=== PATIENT | male | born 1980 | race Two or more races ===

== ENCOUNTER 2025-02-24 10:01 | Emergency (ER) | payer MEDICAID, SELFPAY ==
[2025-02-24 10:23] VITALS: BP 124/76; PULSE 75; RESP 17; TEMP 37.1; O2SAT 96; BMI 29.0
--- NOTE | 2025-02-24 11:09 | EKG_ITS ---
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
[2025-02-24 11:42] LABS: Mean Corpuscular Hemoglobin 31.4 pg (25.0-35.0); Mean Corpuscular Volume 90 fL (80-100); Red Blood Count 4.77 Miln/mm3 (4.50-5.90); White Blood Count 6.9 Thou/mm3 (3.8-10.6)
[2025-02-24 11:43] LABS: Basophils # (Auto) 0.1 Thou/mm3 (0.0-0.2); Basophils % (Auto) 1 % (0-2.5); Eosinophils # (Auto) 0.1 Thou/mm3 (0.0-0.5); Eosinophils % (Auto) 1 % (0-10); Immature Granulocytes % (Auto) 0 % (0-0); Immature Granulocytes Auto 0.01 Thou/mm3 (0.00-0.00); Lymphocytes # (Auto) 1.8 Thou/mm3 (1.0-4.8); Lymphocytes % (Auto) 26 % (10-50); Mean Corpuscular HGB Conc 34.9 g/dl (31.0-37.0); Monocytes # (Auto) 0.7 Thou/mm3 (0.0-0.8); Monocytes % (Auto) 10 % (0-12); Neutrophils # (Auto) 4.3 Thou/mm3 (1.8-7.7); Neutrophils % (Auto) 62 % (37-80); Nucleated Red Blood Cell % 0 /100 WBC (0); Platelet Count 254 Thou/mm3 (140-440)
--- NOTE | 2025-02-24 11:49 | XR_ITS ---
Examination: AP chest single view TECHNIQUE: AP portable semiupright chest single view Date and time: February 24, 2025 1149 hours INDICATIONS: Chest pain today FINDINGS: Reduced inspiratory effort Normal heart size No lobar pneumonia or pulmonary edema IMPRESSION: Poor inspiratory effort chest x-ray
[2025-02-24 11:56] LABS: B-Type Natriuretic Peptide < 20 pg/mL (0-100)
[2025-02-24 11:59] LABS: Alanine Aminotransferase 28 U/L (10-49); Albumin, Serum 4.4 gm/dL (3.5-5.0); Albumin/Globulin Ratio 1.8 (1.2-2.2); Alkaline Phosphatase 53 U/L (46-116); Anion Gap 8 (7-16); Aspartate Amino Transferase 24 U/L (0-34); BUN/Creatinine Ratio 16 Ratio (12-20); Bilirubin,Total 0.4 mg/dL (0.3-1.2); Blood Urea Nitrogen 13 mg/dL (9-23); Calcium 9.1 mg/dL (8.3-10.6); Calcium (Corrected) 9.1 mg/dL (8.5-10.1); Carbon Dioxide 22.8 mMol/L (20.0-31.0); Chloride 105 mMol/L (98-107); Creatinine (Component) 0.8 mg/dL (0.6-1.3); Estimated Creatinine Clearance 119.5 mL/min (>60); Globulin 2.5 gm/dL (2.3-3.5); Glucose 94 mg/dL (74-106); Lipase 33 U/L (12-53); Osmolality,Calculated 272 (275-295); Sodium 136 mMol/L (136-145); Total Protein 6.9 gm/dL (5.7-8.2); Troponin I < 0.002 ng/mL (0.0-0.045); eGFR > 60 See Note
--- NOTE | 2025-02-24 12:13 | EDNOTE_ITS ---
Upper Respiratory Inf. RME/HPI General Chief Complaint: Shortness of Breath/Dyspnea Stated Complaint: SOB, COUGH, BACK PAIN W/ BREATHING X1MO Time Seen by Provider: 02/24/25 10:09 Arrival date/time: 02/24/25 10:01 Mode of arrival: ambulatory Limitations: no limitations RME / HPI RME / HPI Narrative: 43-year-old male who is here today with shortness of breath and chest pain for over 1 month. 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 He has no active cough at this time. Denies any weight loss or chills. Has no abdominal pain, nausea, or vomiting. He has no other acute complaints. Related Data Home Medications ?Medication ?Instructions ?Recorded ?Confirmed aripiprazole 20 mg tablet 20 mg PO QDAY 02/17/2102/17 buspirone 5 mg tablet 5 mg PO BID 02/17/21 1 naproxen sodium 550 mg tablet 550 mg PO BID 02/17/21 0 02/17/21 prazosin 1 mg capsule 1 mg PO HS 02/17/21 02/17/21 prazosin 5 mg capsule 5 mg PO HS 02/17/21 02/17/21 trazodone 50 mg tablet 50 mg PO HS 02/17/21 1 Previous Rx's ?Medication ?Instructions ?Recorded pantoprazole 40 mg tablet,delayed 40 mg PO QDAY #30 ta bs 02/20/21 release (Protonix) Allergies Allergy/AdvReac Type Severity Reaction Status Date / Time No Known Allergies Allergy Verified 02/24/25 10:05 Review of Systems Review of Systems Systems Reviewed: All systems reviewed, normal except as documented ED Exam General Limitations: Present no limitations General appearance: Present alert and in no apparent distress Head Head exam: Present atraumatic Eye Eye exam: Present normal appearance, PERRL and EOMI ENT ENT exam: Present normal exam, normal oropharynx and mucous membranes moist Neck Neck exam: Present normal inspection, full ROM and trachea midline Chest Chest inspection: Present normal inspection and symmetric chest wall rise Respiratory Respiratory exam: Present normal lung sounds bilaterally Cardiovascular Cardiovascular exam: Present regular rate, normal rhythm and normal heart sounds Abdominal Exam Abdominal exam: Present soft and normal bowel sounds Extremities Exam Extremities exam: Present normal inspection and full ROM Back Exam Back exam: Present normal inspection and full ROM Neurological Exam Neurological exam: Present alert, oriented X3 and CN II-XII intact Psychiatric Psychiatric exam: Present normal affect and normal mood Skin Skin exam: Present warm, dry, intact and normal color Course Quality Measures none Orders Category Date Time Status EKG (ED ONLY) *Do not use* NOW Care 02/24/25 11:09 Completed EKG (ED Only) Stat Exams 02/24/25 11:09 Draft XR chest 1V Stat Exams 02/24/25 11:49 Completed BNP [B-Type Natriuretic Peptide] Stat Lab 02/24/25 11:35 Completed CBC Stat Lab 02/24/25 11:35 Completed CMP [Comprehensive Metabolic Panel] Stat Lab 02/24/25 11:35 Completed Lipase Stat Lab 02/24/25 11:35 Completed Troponin I Stat Lab 02/24/25 11:35 Completed Vital Signs Vital signs: Vital Signs Temperature 98.8 F 02/24/25 10:23 Pulse Rate 75 02/24/25 10:23 Respiratory Rate 17 02/24/25 10:23 Blood Pressure 124/76 02/24/25 10:23 Pulse Oximetry (%) 96 02/24/25 10:23 Oxygen Delivery Method Room Air 02/24/25 10:23 Upper Respiratory Infection Patient data External records reviewed:: None Clinical information provided by:: patient and family Social determinants that could affect healthcare access:: none Patient has the following chronic illnesses:: n/a How is presenting disease/condition affected by chronic disease/condition?: no chronic disease Evaluation data The following diagnostics were reviewed and interpreted by me:: lab results, radiology exam(s) and EKG tracing(s) Lab and/or radiology exams considered but not ordered:: N/A Interpretation Summary: No leukocytosis or electrolyte derangement. Chest x-ray reveals poor inspiration, with is no evidence of acute or active disease. Medications / Prescriptions Medications or Prescriptions considered but not ordered:: N/A Medication administrations:: N/A Consultations Consultation(s) initiated? (list below): No Diagnosis Upper Respiratory Differential Diagnosis: upper respiratory infection, viral infection, bronchitis and other (Tuberculosis) Most likely diagnosis given after review of the tests above:: Chest pain Admission Indicated Admission indicated?: not indicated Admission Request Was there a request for admission?: No Disposition Plan Disposition Plan: Discharge Discharge Attestation Discharge Attestation: The patient and all family members were given an opportunity to ask questions and understood the discharge instructions. Discharge instructions specifically effects, indications for sooner follow up or return to the emergency department, and the expected course of current diagnosis. Patient condition: Stable Discharge Plan Plan Patient Disposition: HOME (Self Care) Patient condition on transfer: Stable Prescriptions/Referrals Prescriptions/Med Rec: No Action buspirone 5 mg tablet 5 mg PO BID prazosin 5 mg capsule 5 mg PO HS Patient Comments: TOMWoodrow 1 C PSULA POR V A ORAL AL ACOSTARSE CON 1 MG naproxen sodium 550 mg tablet 550 mg PO BID aripiprazole 20 mg tablet 20 mg PO QDAY trazodone 50 mg tablet 50 mg PO HS Patient Comments: TOME HAYDEN TABLETA TODOS LOS D AL ACOSTARSE prazosin 1 mg capsule 1 mg PO HS Patient Comments: TOME DOS CAPSULAS POR V A ORAL CADA NOCHE CON 5 MG pantoprazole [Protonix] 40 mg tablet,delayed release (DR/EC) 40 mg PO QDAY Qty: 30 0RF Referrals: No Primary/Family,Physician [Primary Care Provider] - In 1 week Problem List Clinical Impression: Chest pain Patient/Caregiver Discharge Instructions Education Materials: ED Chest Pain, Uncertain Cause Additional Instructions: Your workup today was unremarkable. Please contact public health to discuss fur ther workup options and therapy. You may contact them using the information below. Return exam for any worsening for emergent changes. :[facility], [address], [place] [address] [phone] Print Language: Romansh Stand Alone Forms: Alyssa Award Info., Patient Portal Info Letter
[2025-02-24 12:18] VITALS: BP 129/72; PULSE 544; RESP 16; TEMP 37; O2SAT 97
== END 2025-02-24 13:28 | disposition home or self-care (01) ==
PROVIDERS: Physician Assistant Medical; Emergency Provider Family Medicine
DX: R07.9 Chest pain, unspecified (principal); R06.02 Shortness of breath
CPT/HCPCS: 36415; 71045; 80053; 83690; 83880; 84484; 85025; 93005; 99283

== ENCOUNTER 2025-06-28 16:03 | Inpatient (IN) | payer MEDICAID, SELFPAY ==
[2025-06-28] VITALS (17 sets, daily range): BP systolic 150–182; BP diastolic 73–118; PULSE 64–131; RESP 19–38; TEMP 36.6–37.4; O2SAT 87–97; BMI 27.4
--- NOTE | 2025-06-28 16:15 | XR_ITS ---
Examination: CT brain head without contrast. 2-D sagittal coronal reconstructions Date and time of exam: June 18 teen [phone] 1 hours INDICATIONS: Injury to the head today with head pain altered mental status CTDI: vol (mGy): 52.4 DLP: (mGycm): 1097 Technique: Multiple CT axial sections of the brain have been obtained, 5 mm slice thickness. Contrast has not been administered. 2-D sagittal, coronal reconstructions have been obtained Low dose protocols were performed. One or more of the following dose reduction techniques were used; automated exposure control, adjustment of the mA and/or KV according to patient size, use of iterative reconstruction technique. Findings: No significant ventricular enlargement. Intra-axial or extra-axial hemorrhage density is not seen. No mass effect or midline shift Basal cisterns are not remarkable. Fourth ventricle is midline. Cranial vault intact. Impression: Negative for acute hemorrhage, mass effect or midline shift
[2025-06-28] MEDS: ONDANSETRON INJ 2 MG/ML INJ 2 ML 4 MG IVP (16:17)
[2025-06-28] MEDS: RINGERS LACTATED 1000 ML 1,000 ML 999 ML IV ×2 (16:20→18:13)
--- NOTE | 2025-06-28 16:21 | EKG_ITS ---
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
--- NOTE | 2025-06-28 16:22 | PD.EDALCOH ---
ED Alcohol RME/HPI General Chief Complaint: Psychiatric Symptoms Stated Complaint: ALCOHOL WITHDRAWAL Time Seen by Provider: 06/28/25 16:15 Arrival date/time: 06/28/25 16:03 Limitations: altered mental status RME / HPI RME / HPI narrative: Patient is a 44-year-old male with medical history notable for alcohol use disorder, upper GI bleed, that is in the emergency department concerns for confusion, vomiting and generally feeling unwell for the last couple days. Per EMS spoke with family, patient is usually GCS 15, drinks heavily, they ran out of alcohol at home and so the patient has not been drinking over the last couple days. Per the patient he has not consumed alcohol unclear if today or yesterday. 911 was called because the patient started hallucinating, scratching at his neck and his chest, vomiting dark emesis, and having difficulty moving. Patient was unable to walk for EMS, not following commands. Per EMS, family states that patient has been hallucinating, and when he starts to see things he scratches himself violently including at his neck. Denies any falls, or trauma other than his old self excoriations for EMS conversation with family When I speak to the patient, patient knows his name, does not know where he is does not know what is going on. Able to follow some commands. Unclear if also has drug use. Related Data Home Medications ?Medication ?Instructions ?Recorded ?Confirmed aripiprazole 20 mg tablet 20 mg PO QDAY 02/17/21 02/17/21 buspirone 5 mg tablet 5 mg PO BID 02/17/21 02/17/21 naproxen sodium 550 mg tablet 550 mg PO BID 02/17/21 02/17/21 prazosin 1 mg capsule 1 mg PO HS 02/17/21 02/17/21 prazosin 5 mg capsule 5 mg PO HS 02/17/21 02/17/21 trazodone 50 mg tablet 50 mg PO HS 02/17/21 02/17/21 Previous Rx's ?Medication ?Instructions ?Recorded pantoprazole 40 mg tablet,delayed 40 mg PO QDAY #30 tabs 02/20/21 release (Protonix) Allergies Allergy/AdvReac Type Severity Reaction Status Date / Time No Known Allergies Allergy Verified 06/28/25 16:27 ED Exam General Limitations: Present altered mental status General appearance: Present alert, anxious, in distress and other (Diaphoretic) Head Head exam: Present atraumatic and other (Diaphoretic) Eye Eye exam: Present normal appearance, PERRL and EOMI ENT ENT exam: Present mucous membranes moist Neck Neck exam: Present other (Multiple scratches bilateral neck, no ecchymoses, no expanding hematoma) Chest Chest inspection: Present rash (Patient with significant petechiae on chest) Respiratory Respiratory exam: Present normal lung sounds bilaterally; Absent respiratory distress or wheezes Cardiovascular Cardiovascular exam: Present tachycardia Abdominal Exam Abdominal exam: Present soft; Absent distention, tenderness or guarding exam: Present normal inspection Extremities Exam Extremities exam: Present normal inspection and other (Weak in all 4 extremities) Back Exam Back exam: Present normal inspection Neurological Exam Neurological exam: Present alert and other (Patient intermittently following commands, sensation intact in all 4 extremities, weak in all 4 extremities) Psychiatric Psychiatric exam: Present agitated and anxious Skin Skin exam: Present other (Petechiae scattered chest neck, excoriations on neck, scratches on neck, diaphoretic) Course Quality Measures none Orders Category Date Time Status 1799 Psychiatric Hold NOW Care 06/28/25 16:[address] Screening NOW Care 06/28/25 16:16 Active EKG (ED ONLY) *Do not use* NOW Care 06/28/25 16:21 Completed Miscellaneous Nursing Order NOW Care 06/28/25 16:43 Active One-to-one observation NOW Care 06/28/25 16:30 Active Consult to Gastroenterology Stat Cons 06/28/25 18:[address] cervical spine wo con Stat Exams 06/28/25 17:[address] head/brain wo con Stat Exams 06/28/25 16:15 Completed EKG (ED Only) Stat Exams 06/28/25 16:21 Draft Acetaminophen Stat Lab 06/28/25 16:30 Completed Alcohol, Blood Medical Stat Lab 06/28/25 16:30 Completed Ammonia Stat Lab 06/28/25 16:30 Completed CBC Stat Lab 06/28/25 16:30 Completed CMP [Comprehensive Metabolic Panel] Stat Lab 06/28/25 16:30 Completed Drug Screen,Urine Stat Lab 06/28/25 17:15 Completed Magnesium Stat Lab 06/28/25 16:30 Completed PT [Prothrombin Time with INR] Stat Lab 06/28/25 16:30 Completed Salicylate Stat Lab 06/28/25 16:30 Completed T4 (Thyroxine) Stat Lab 06/28/25 16:30 Completed TSH [Thyroid Stimulating Hormone] Stat Lab 06/28/25 16:30 Completed Type and Screen Stat Lab 06/28/25 17:36 Completed UA, C/S IF [Urinalysis, C/S if Indicated] Stat Lab 06/28/25 17:15 Completed VBG [Venous Blood Gas] Stat Lab 06/28/25 16:30 Completed Folic Acid Inj Med 06/28/25 16:15 Discontinued 1 mg IVP X1 ONE LORazepam [Ativan Inj] Med 06/28/25 16:24 Discontinued 1 mg IVP X1 ONE Octreotide Acet Inj [SandoSTATIN Inj] Med 06/28/25 16:40 Discontinued 50 mcg IV X1 ONE Ondansetron Inj [Zofran Inj] Med 06/28/25 16:09 Discontinued 4 mg .ROUTE .STK-MED ONE Ondansetron Inj [Zofran Inj] Med 06/28/25 16:10 Discontinued 4 mg IVP X1 ONE Ondansetron Inj [Zofran Inj] Med 06/28/25 16:15 Discontinued 4 mg IVP X1 ONE Pantoprazole/Ns 80Mg IV Premix [Protonix/NS 80mg IV Med 06/28/25 16:19 Discontinued Premix] 80 mg in 100 ml IV X1 Pantoprazole/Ns 80Mg IV Premix [Protonix/NS 80mg IV Med 06/28/25 16:34 Active Premix] 80 mg in 100 ml IV X1 Ringers Lactated 1000 ml [Lactated Ringers] 1,000 ml Med 06/28/25 16:17 Discontinued IV 999 mls/hr Ringers Lactated 1000 ml [Lactated Ringers] 1,000 ml Med 06/28/25 17:37 Discontinued IV 999 mls/hr Ringers Lactated 500 ml [Lactated Ringers] 500 ml Med 06/28/25 16:11 Discontinued IV 999 mls/hr Sodium Chloride 0.9% [Ns] 100 ml Med 06/28/25 17:00 Active Octreotide Acet Inj [SandoSTATIN Inj] 1,000 mcg IV 50 mcg/hr Sodium Chloride 0.9% [Ns] 100 ml Med 06/29/25 13:00 Pending Octreotide Acet Inj [SandoSTATIN Inj] 1,000 mcg IV 50 mcg/hr Thiamine Inj [Vitamin B-1 Inj] Med 06/28/25 16:30 Discontinued 100 mg IV X1 ONE Thiamine Inj [Vitamin B-1 Inj] 100 mg Med 06/28/25 16:15 Discontinued Sodium Chloride 0.9% [Ns] 100 ml IV X1 Vital Signs Vital signs: Vital Signs Temperature 98.9 F 06/28/25 16:14 Pulse Rate 131 H 06/28/25 16:14 Respiratory Rate 33 H 06/28/25 16:14 Blood Pressure 167/104 H 06/28/25 16:14 Pulse Oximetry (%) 95 06/28/25 16:14 Oxygen Delivery Method Nasal Cannula 06/28/25 16:14 Oxygen Flow Rate 2 06/28/25 16:14 Critical Care Time Critical Care Time Critical Care Time: Yes Total Critical Care Time (min.): 60 Attestation: Due to a high probability of clinically significant, life threatening deterioration, the patient required my highest level of preparedness to intervene emergently and I personally spent this critical care time directly and personally managing the patient. This critical care time included obtaining a history; examining the patient; pulse oximetry; ordering and review of studies; arranging urgent treatment with development of a management plan; evaluation of patient's response to treatment; frequent reassessment; and, discussions with other providers. This critical care time was performed to assess and manage the high probability of imminent, life-threatening deterioration that could result in multi-organ failure. It was exclusive of separately billable procedures and treating other patients and teaching time. Please see MDM section and the rest of the note for further information on patient assessment and treatment. Discharge Plan Plan Patient Disposition: Admit Acute Care w/in Hospital Problem List Clinical Impression: Suicide attempt, Alcohol withdrawal, Coffee ground emesis, Alcohol use disorder, Petechiae Alcohol MDM Narrative MDM Narrative: Patient is a 44-year-old male with medical history notable for alcohol use disorder, alcohol withdrawal, GI bleed that send emergency department concerns for vomiting, confusion, and feeling unwell. Vital signs and exam as listed. Concern for delirium tremens, alcohol withdrawal, upper GI bleed, bleeding varices, acute intracranial hemorrhage among others. Patient was placed in a resuscitation room, IV access obtained, placed on the hospital monitor. Patient diaphoretic, tachycardic, tachypneic, oxygen saturation is 93% on room air. Patient also has scratches on his neck as well as petechiae throughout his chest, patient vomiting, dark emesis. Abdomen soft nondistended nontender. Ordered CT brain, CT cervical spine given patient with scratches on his neck unclear if trauma was involved however patient does not have any neck pain or cervical spine tenderness. Also ordered Protonix bolus and drip, octreotide bolus and drip, a liter of fluids and antiemetics. 4:31p patient told nursing staff that he ingested rat poison yesterday in an attemp to kill himself. I placed patient at 79, called poison control. Discussed the case with poison control, states that depending on the type of rat poison, concern would be seizures would like to usually occur soon after ingestion, as well as coagulopathy. Recommends that we trend the CBC every 12 hours if normal. If abnormal recommends that we trend it every 4-6 hours. Usually with the super warfarin type of rat poison symptoms do not present until approximately 5 days after ingestion. Patient would need trending for approximately 5 days. If abnormal is requesting that we call poison control back. EKG performed today at 1623 notable for sinus rhythm heart rate 98, normal intervals, nonspecific T wave changes, not a cardiac alert, patient has mild elevations in lead V2 and depressions in V5 Labs with evidence of leukocytosis 18.4, left shift of 89%. Hemoglobin is 15.9. pH normal, sodium 133, chloride 93, anion gap of 20, creatinine 1.9 previously normal. Fluids were provided. Magnesium 3.5, will provide patient with additional fluids. Patient with transaminitis, AST 123 ALT 73, normal bilirubin, alk phos normal, ammonia 57. Thyroid studies unremarkable. Tylenol salicylate and ethanol level not elevated. PT and INR normal. 5:40p on reevaluation patient now more calm, hemodynamically stable, no longer vomiting and no longer diaphoretic. Urinalysis without evidence of infection. Drug screen negative. CT brain and cervical spine without any acute abnormalities. Patient without any focal neurodeficits, moving all extremities. Patient feels better 6:30p Following dosage of benzodiazepines, patient calm, resting comfortably. Will consult information officer as well as hospitalist service. Patient will remain on 1798 until medically cleared by hospitalist service for SW evaluation. Called Dr. Dale, left Discussed case with hospitalist, kindly accepts patient for admission Patient data External records reviewed:: [facility] previous records and EMS form Clinical information provided by:: patient and EMS Social determinants that could affect healthcare access:: mental health Patient has the following chronic illnesses:: see mdm How is presenting disease/condition affected by chronic disease/condition?: exacerbated by Evaluation data The following diagnostics were reviewed and interpreted by me:: lab results, radiology exam(s) and EKG tracing(s) Lab and/or radiology exams considered but not ordered:: none Interpretation Summary: see mdm Medications / Prescriptions Medications or Prescriptions considered but not ordered:: none Medication administrations:: Medication Administration History Acetaminophen (Acetaminophen 325 Mg Tablet) 650 mg PO Q6H PRN PRN Reason: Fever >100.4 Stop: 07/28/25 20:03 Acetaminophen (Acetaminophen 325 Mg Tablet) 650 mg PO Q6H PRN PRN Reason: PAIN SCALE 1-3 (mild Stop: 07/28/25 20:03 Chlordiazepoxide HCl (Chlordiazepoxide Hcl 25 Mg Capsule) 25 mg PO Q4HR PRN PRN Reason: CIWA >12 Stop: 06/29/25 20:15 Folic Acid (Folic Acid 1 Mg Tablet) 1 mg PO BID LADAN Stop: 07/03/25 20:59 Last Admin: 06/28/25 20:31 Dose: 1 mg Documented By: ROSHAN Pantoprazole Sodium (Protonix/Ns 80mg Iv Premix) 80 mg in 100 mls @ 10 mls/hr IV X1 ONE Stop: 06/29/25 02:33 Last Admin: 06/28/25 18:13 Dose: 10 mls/hr Documented By: RITA Octreotide Acetate 1,000 mcg/ (Sodium Chloride) 102 mls @ 5.1 mls/hr IV .Q20H LADAN; Protocol Stop: 07/03/25 16:59 Octreotide Acetate 1,000 mcg/ (Sodium Chloride) 102 mls @ 5.1 mls/hr IV .Q20H LADAN; Protocol Stop: 06/29/25 12:59 Last Admin: 06/28/25 18:10 Dose: 50 mcg/hr, 5.1 mls/hr Documented By: VL Sodium Chloride (Ns) 1,000 mls @ 75 mls/hr IV .[id number] LADAN Stop: 06/29/25 23:09 Last Admin: 06/28/25 20:32 Dose: 75 mls/hr Documented By: ROSHAN Lorazepam (Lorazepam 0.5 Mg Tablet) 1 mg PO Q6HR PRN PRN Reason: CIWA SCORE 7-11 Stop: 07/03/25 20:18 Last Admin: 06/28/25 20:31 Dose: 1 mg Documented By: ROSHAN Morphine Sulfate (Morphine Sulf Inj 4 Mg/Ml Vial) 2 mg IVP Q6HR PRN PRN Reason: Pain Scale 4-10 (Severe Stop: 07/03/25 20:03 Ondansetron HCl (Ondansetron Inj 2 Mg/Ml Inj 2 Ml) 4 mg IVP Q6H PRN; Protocol PRN Reason: NAUSEA OR VOMITING Stop: 07/28/25 20:03 Pantoprazole Sodium (Pantoprazole Inj 40 Mg Vial) 40 mg IVP BID [facility] Stop: 07/28/25 20:59 Last Admin: 06/28/25 20:31 Dose: 40 mg Documented By: ROSHAN Thiamine HCl (Thiamine 100 Mg Tablet) 100 mg PO BID LADAN Stop: 07/03/25 20:59 Last Admin: 06/28/25 20:31 Dose: 100 mg Documented By: ROSHAN Discontinued Medications Folic Acid (Folic Acid Inj 1 Mg/0.2 Ml) 1 mg IVP X1 ONE Stop: 06/28/25 16:16 Last Admin: 06/28/25 16:43 Dose: 1 mg Documented By: RITA Lactated Ringer's (Lactated Ringers) 500 mls @ 999 mls/hr IV .Q31M ONE Stop: 06/28/25 16:41 Last Admin: 06/28/25 16:12 Dose: Not Given Documented By: RITA Non-Admin Reason: Cancelled by Provider Thiamine HCl 100 mg/ Sodium (Chloride) 101 mls @ 202 mls/hr IV X1 ONE Stop: 06/28/25 16:44 Last Admin: 06/28/25 17:45 Dose: Not Given Documented By: RITA Non-Admin Reason: Cancelled by Provider Lactated Ringer's (Lactated Ringers) 1,000 mls @ 999 mls/hr IV .Q1H1M ONE Stop: 06/28/25 17:17 Last Infusion: 06/28/25 17:21 Dose: Infused Documented By: Admin: 06/28/25 16:20 Dose: 999 mls/hr Documented By: RITA Pantoprazole Sodium (Protonix/Ns 80mg Iv Premix) 80 mg in 100 mls @ 400 mls/hr IV X1 ONE Stop: 06/28/25 16:33 Last Infusion: 06/28/25 17:07 Dose: Infused Documented By: Admin: 06/28/25 16:52 Dose: 400 mls/hr Documented By: RITA Lactated Ringer's (Lactated Ringers) 1,000 mls @ 999 mls/hr IV .Q1H1M ONE Stop: 06/28/25 18:37 Last Infusion: 06/28/25 19:14 Dose: Infused Documented By: Admin: 06/28/25 18:13 Dose: 999 mls/hr Documented By: RITA Lorazepam (Lorazepam 2 Mg/Ml Vial) 1 mg IVP X1 ONE Stop: 06/28/25 16:25 Last Admin: 06/28/25 16:43 Dose: 1 mg Documented By: RITA Octreotide Acetate (Octreotide Acet Inj 50 Mcg/Ml Vial) 50 mcg IV X1 ONE Stop: 06/28/25 16:41 Last Admin: 06/28/25 17:15 Dose: 50 mcg Documented By: RITA Ondansetron HCl (Ondansetron Inj 2 Mg/Ml Inj 2 Ml) 4 mg IVP X1 ONE; Protocol Stop: 06/28/25 16:11 Last Admin: 06/28/25 16:17 Dose: 4 mg Documented By: RITA Ondansetron HCl (Ondansetron Inj 2 Mg/Ml Inj 2 Ml) Confirm Administered Dose 4 mg .ROUTE .STK-MED ONE Stop: 06/28/25 16:10 Last Admin: 06/28/25 16:16 Dose: Not Given Documented By: RITA Non-Admin Reason: Duplicate Medication on eMAR Ondansetron HCl (Ondansetron Inj 2 Mg/Ml Inj 2 Ml) 4 mg IVP X1 ONE; Protocol Stop: 06/28/25 16:16 Last Admin: 06/28/25 17:45 Dose: Not Given Documented By: RITA Non-Admin Reason: Cancelled by Provider Thiamine HCl (Thiamine Inj 100 Mg/Ml Vial 2 Ml) 100 mg IV X1 ONE Stop: 06/28/25 16:31 Last Admin: 06/28/25 16:43 Dose: 100 mg Documented By: RITA see above Consultations Consultation(s) initiated? (list below): Yes Diagnosis Differential diagnosis alcohol: other (see mdm ) Most likely diagnosis given after review of the tests above:: delirium tremens alcohol withdrawal Coffee-ground emesis Ingestion of rat poison Admission Indicated Admission indicated?: indicated Admission Request Was there a request for admission?: Yes Admission Attestation Admission request attestation: Discussed case with Hospitalist service regarding admission. Discussed patients ED course, exam findings, labs, and radiology results. The Hospitalist [agrees] to accept the patient for admission. Disposition Plan Disposition Plan: Admit
[2025-06-28 16:41] LABS: Base Excess, Venous 0 (-3-3); O2 Saturation, Venous 95 % (96-97); PCO2, Venous 32 mmHg (36-56); PO2, Venous 83 mmHg (15-58); pH, Venous 7.47 (7.33-7.66)
[2025-06-28 16:42] LABS: Basophils # (Auto) 0.0 Thou/mm3 (0.0-0.2); Basophils % (Auto) 0 % (0-2.5); Eosinophils # (Auto) 0.1 Thou/mm3 (0.0-0.5); Eosinophils % (Auto) 0 % (0-10); Hematocrit 44.1 % (41.0-53.0); Hemoglobin 15.9 g/dL (13.5-16.0); Immature Granulocytes Auto 0.14 Thou/mm3 (0.00-0.00); Lymphocytes # (Auto) 0.9 Thou/mm3 (1.0-4.8); Lymphocytes % (Auto) 5 % (10-50); Mean Corpuscular HGB Conc 36.1 g/dl (31.0-37.0); Mean Corpuscular Hemoglobin 31.7 pg (25.0-35.0); Mean Corpuscular Volume 88 fL (80-100); Monocytes # (Auto) 1.0 Thou/mm3 (0.0-0.8); Monocytes % (Auto) 5 % (0-12); Neutrophils # (Auto) 16.3 Thou/mm3 (1.8-7.7); Neutrophils % (Auto) 89 % (37-80); Nucleated Red Blood Cell # 0.00 Thou/mm3 (0.00-0.00); Nucleated Red Blood Cell % 0 /100 WBC (0); Platelet Count 287 Thou/mm3 (140-440); RDW Standard Deviation 39.8 fL (35.1-43.9); Red Blood Count 5.02 Miln/mm3 (4.50-5.90); White Blood Count 18.4 Thou/mm3 (3.8-10.6)
[2025-06-28] MEDS: FOLIC ACID INJ 1 MG/0.2 ML IVP (16:43)
[2025-06-28] MEDS: THIAMINE INJ 100 MG/ML VIAL 2 ML IV (16:43)
[2025-06-28] MEDS: LORazepam 2 MG/ML VIAL 1 MG IVP (16:43)
[2025-06-28] MEDS: PANTOPRAZOLE/NS 80MG IV PREMIX 80 MG/100 ML BAG 400 MG IV (16:52)
[2025-06-28 16:59] LABS: INR 1.0 (0.9-1.3); Prothrombin Time 10.9 Seconds (9.0-12.2)
[2025-06-28 17:09] LABS: T4 (Thyroxine) 6.3 mcg/dL (4.5-10.9)
[2025-06-28 17:11] LABS: Acetaminophen < 2.0 mcg/mL (10.0-20.0); Alanine Aminotransferase 73 U/L (10-49); Albumin, Serum 4.8 gm/dL (3.5-5.0); Albumin/Globulin Ratio 1.7 (1.2-2.2); Alcohol, Blood Medical < 3.0 mg/dL (0-10.0); Alkaline Phosphatase 61 U/L (46-116); Anion Gap 20 (7-16); Aspartate Amino Transferase 123 U/L (0-34); BUN/Creatinine Ratio 8 Ratio (12-20); Bilirubin,Total 0.8 mg/dL (0.3-1.2); Blood Urea Nitrogen 15 mg/dL (9-23); Calcium 9.2 mg/dL (8.3-10.6); Calcium (Corrected) 9.2 mg/dL (8.5-10.1); Carbon Dioxide 20.4 mMol/L (20.0-31.0); Chloride 93 mMol/L (98-107); Creatinine (Component) 1.9 mg/dL (0.6-1.3); Estimated Creatinine Clearance 49.0 mL/min (>60); Globulin 2.8 gm/dL (2.3-3.5); Glucose 135 mg/dL (74-106); Magnesium 3.5 mg/dL (1.6-2.6); Osmolality,Calculated 269 (275-295); Potassium 4.1 mMol/L (3.4-5.1); Salicylate < 3.0 mg/dL; Sodium 133 mMol/L (136-145); Thyroid Stimulating Hormone 0.93 uIU/mL (0.55-4.78); Total Protein 7.6 gm/dL (5.7-8.2); eGFR 44 See Note
[2025-06-28] MEDS: OCTREOTIDE ACET INJ 50 mCg/ML VIAL IV (17:15)
[2025-06-28 17:19] LABS: Ammonia 57 uMol/L (11-32)
--- NOTE | 2025-06-28 17:26 | PC.CC ---
OYSTER FLOATER, made face to face contact with patient and bedside RN Katlyn who is at bedside with patient. Per RN, patient reported he took rat poison in seed form to end his life and has been drinking excessively with the intention to . Patient was placed on a 1799 hold.
[2025-06-28 17:37] LABS: Collection Type, Urine Catheter
--- NOTE | 2025-06-28 17:38 | XR_ITS ---
Examination: CT cervical spine without contrast 2-D sagittal reconstructions 2-D coronal reconstructions 3-D reconstructions. Exam date and time: June 28, 2025, 1801 hours INDICATIONS: Injury to the neck today, neck pain CTDI:vol (mGy) 17.6 DLP: (mGycm) 395 Technique: Multiple 2 mm axial sections of the cervical spine have been obtained. The coronal and sagittal reconstructions have been obtained. 3-D reconstructions have been obtained. Low dose protocols were performed. One or more of the following dose reduction techniques were used; automated exposure control, adjustment of the mA and/or KV according to patient size, use of iterative reconstruction technique. Findings: Axial sections demonstrate intact base of the skull. C1 exhibit satisfactory relationship to the odontoid. No acute cervical vertebral body fracture seen. Alignment posterior spinous processes satisfactory. Impression: No acute cervical fracture.
[2025-06-28 17:51] LABS: Amphetamine/Methamp Scrn,U Negative (Negative); Barbiturate Screen,Urine Negative (Negative); Benzodiazepines Screen,Urine Negative (Negative); Benzoylecgonine Screen, Ur Negative (Negative); Fentanyl Screen,Urine Negative (Negative); Opiate Screen,Urine Negative (Negative); THC Screen,Urine Negative (Negative)
[2025-06-28 17:59] LABS: Bilirubin,Urine Negative (Negative); Blood,Urine 3+ (Negative); Color,Urine Yellow (Lt Yel-Yel); Culture Indicated,Urine Not Indicated; Glucose, Urine Negative (Negative); Ketones,Urine 1+ (Negative); Leukocyte Esterase,Urine Negative (Negative); Nitrite,Urine Negative (Negative); PH,Urine 5.5 (5.0-7.0); Protein,Urine 1+ (Neg - Trace); RBC,Urine 3 /hpf (0-3); Specific Gravity,Urine 1.023 (1.001-1.035); Squamous Epithelial Cell,Urine < 1 /hpf (0-5); Urobilinogen,Urine Negative mg/dL (0.0-1.0); WBC,Urine 1 /hpf (0-5)
[2025-06-28 18:00] LABS: Clarity,Urine Hazy (Clear/Hazy); Sperm,Urine Present
[2025-06-28] MEDS: OCTREOTIDE ACET INJ 1,000 MCG in SODIUM CHLORIDE 0.9% 100 ML 5.1 MCG IV (18:10)
[2025-06-28] MEDS: PANTOPRAZOLE/NS 80MG IV PREMIX 80 MG/100 ML BAG 10 MG IV (18:13)
--- NOTE | 2025-06-28 18:36 | PC.NURSE ---
PATIENT BIBA TO ED FROM HOME FOR ALCOHOL WITHDRAWAL SYMPTOMS. PATIENT WAS VOMITING AND PER FAMILY HAD BEEN DRINKING FOR THE LAST 30 DAYS, LAST DRINK WAS SUSPECTED TO BE MONDAY. PATIENT EXPRESSED TO THIS RN AT BEDSIDE THAT HE TRIED TO KILL HIMSELF YESTERDAY. PATIENT ADMITS TO INGESTING A SMALL BOTTLE OF RAT POISON; PATIENT WAS NOT SURE OF WHAT TYPE OF RAT POISON HE INGESTED. DR. BRAR WAS MADE AWARE THAT PATIENT ADMITTED TO SI AND RAT POISON INGESTION. DR. BRAR CONTACTED POISON CONTROL. SEE DOCTOR NOTE FOR POISON CONTROL RECOMMENDATIONS. PATIENT WAS PLACED ON 1:1 SITTER OBSERVATION AT 1630. PATIENT STATES HE HAS BEEN HAVING THOUGHTS OF KILLING HIMSELF DUE TO LOSING HIS FAMILY DUE TO HIS ALCOHOLISM. PATIENT WAS MEDICATED PER MD ORDERS AND VITALS ARE STABLE. PATIENT DENIES ANY CHEST PAIN, PATIENT APPEARED TO BE VOMITING BLOOD ON ARRIVAL. PATIENT ALERT AND ORIENTED. CIWA SCORE AT [address] BRAR AWARE. CURRENT VITALS ARE STABLE. PLAN FOR ADMISSION TO HOSPITAL ONGOING. PATIENT ON 1798 HOLD.
[2025-06-28] MEDS: FOLIC ACID 1 MG TABLET PO (20:31)
[2025-06-28] MEDS: THIAMINE 100 MG TABLET PO (20:31)
[2025-06-28] MEDS: SODIUM CHLORIDE 0.9% 1000 ML 1,000 ML 75 ML IV (20:32)
[2025-06-28 22:50] LABS: Basophils # (Auto) 0.0 Thou/mm3 (0.0-0.2); Basophils % (Auto) 0 % (0-2.5); Eosinophils # (Auto) 0.0 Thou/mm3 (0.0-0.5); Eosinophils % (Auto) 0 % (0-10); Hematocrit 38.3 % (41.0-53.0); Hemoglobin 14.0 g/dL (13.5-16.0); Immature Granulocytes Auto 0.03 Thou/mm3 (0.00-0.00); Lymphocytes # (Auto) 1.0 Thou/mm3 (1.0-4.8); Lymphocytes % (Auto) 8 % (10-50); Mean Corpuscular HGB Conc 36.6 g/dl (31.0-37.0); Mean Corpuscular Hemoglobin 32.1 pg (25.0-35.0); Mean Corpuscular Volume 88 fL (80-100); Monocytes # (Auto) 1.0 Thou/mm3 (0.0-0.8); Monocytes % (Auto) 8 % (0-12); Neutrophils # (Auto) 9.8 Thou/mm3 (1.8-7.7); Neutrophils % (Auto) 83 % (37-80); Nucleated Red Blood Cell # 0.00 Thou/mm3 (0.00-0.00); Nucleated Red Blood Cell % 0 /100 WBC (0); Platelet Count 202 Thou/mm3 (140-440); RDW Standard Deviation 39.8 fL (35.1-43.9); Red Blood Count 4.36 Miln/mm3 (4.50-5.90); White Blood Count 11.9 Thou/mm3 (3.8-10.6)
--- NOTE | 2025-06-28 23:41 | PD.RESHP ---
Documentation for date of: 06/28/25 [facility] History of Present Illness Chief complaint: Rat poison ingestion History of present illness: This is a 44-year-old male with Past medical history of alcohol use disorder presented to the ED with complaints of abdominal pain, vomiting following rat poison ingestion. He complains of ingestion of rat poison yesterday around noon because he felt depressed at that time along with ingestion of 1 L of vodka. After ingestion of rat poison he had multiple episodes of vomiting at least 15 times coffee-ground emesis associated with hematemesis as well. He endorses generalized abdominal pain after ingestion but denies any episodes of diarrhea. He complains of chest pain and shortness of breath after ingestion but denies any palpitations. As per family members to EMS ,he was Hallicunating when the EMS came to home. ED visit vitals: BP 167/114, pulse rate 95, respiratory rate 20, temperature 98.5 saturating 97% on 4 L of nasal cannula Pertinent labs are WBC 18.4, neutrophil 89 %, PT/INR looks normal, VBG pCO2 32, pO2 83, sodium 133, chloride 93, anion gap 20, BUN 15, creatinine 1.9, estimated creatinine clearance 49, eGFR 45, magnesium 3.5, AST 123, ALT 73, ammonia 57, urinalysis urine with blood 3+ Imaging cervical CT, head CT, EKG looks normal. Social history: Endorses alcohol usage but stopped smoking 4 months back- used to smoke half a pack a day Family history: No suicides in the family Allergy history: None Review of Systems Review of Systems Systems Reviewed: All systems reviewed, normal except as documented Exam Vital Signs Temp Pulse Resp BP Pulse Ox O2 Del Method O2 Flow Rate 98.1 F 74 26 H 150/73 H 97 Nasal Cannula 4 06/28/25 22:00 06/28/25 22:00 06/28/25 22:00 06/28/25 22:00 06/28/25 22:00 06/28/25 22:00 06/28/25 22:00 Narrative Exam GENERAL: NAD, AAOx3 HEENT: Moist mucosa. Eyes open, symmetrical, & clear CARDIO: Rapid regular rhythm Noted. No Murmurs. PULM: No noted coughing/dyspnea CTA B/L, no R/W/R GI: Abdomen soft, nondistended, Tenderness on palpation of epigastric ,RUQ and LUQ. SKIN/MSK/EXT: No wounds/rashes/amputations, no pain on palpation.Petichae over the upper part of the chest. Pedal pulses present B/L NEURO: AAOx3, no focal neuro deficits, able to move all 4 extremities Results: Labs 06/28/25 22:32 06/29/25 04:15 Labs: Short CBC 06/28/25 06/28/25 Range/Units 16:30 22:32 WBC 18.4 H 11.9 H D (3.8-10.6) Thou/mm3 Hgb 15.9 14.0 (13.5-16.0) g/dL Hct 44.1 38.3 L (41.0-53.0) % Plt Count 287 202 D (140-440) Thou/mm3 BMP 06/28/25 16:30 Sodium 133 L Potassium 4.1 Chloride 93 L Carbon Dioxide 20.4 BUN 15 Creatinine 1.9 H Glucose 135 H Calcium 9.2 Liver Function 06/28/25 Range/Units 16:30 Total Bilirubin 0.8 (0.3-1.2) mg/dL AST 123 H (0-34) U/L ALT 73 H (10-49) U/L Alkaline Phosphatase 61 (46-116) U/L Albumin 4.8 (3.5-5.0) gm/dL Urine 06/28/25 Range/Units 17:15 Urine Color Yellow (Lt Yel-Yel) Urine Clarity Hazy (Clear/Hazy) Urine pH 5.5 (5.0-7.0) Ur Specific [place] 1.023 (1.001-1.035) Urine Protein 1+ A (Neg - Trace) Urine Glucose (UA) Negative (Negative) ABG Interpretation ABG results: 06/28/25 16:30 VBG pH 7.47 VBG pCO2 32 L VBG pO2 83 H VBG Base Excess 0 Quality Measures Quality Measures none Medications Home Medications and Allergies Home Medications ?Medication ?Instructions ?Recorded ?Confirmed ?Type aripiprazole 20 mg tablet 20 mg PO QDAY 02/17/21 02/17/21 History buspirone 5 mg tablet 5 mg PO BID 02/17/21 02/17/21 History naproxen sodium 550 mg tablet 550 mg PO BID 02/17/21 02/17/21 History prazosin 1 mg capsule 1 mg PO HS 02/17/21 02/17/21 History prazosin 5 mg capsule 5 mg PO HS 02/17/21 02/17/21 History trazodone 50 mg tablet 50 mg PO HS 02/17/21 02/17/21 History Allergies Allergy/AdvReac Type Severity Reaction Status Date / Time No Known Allergies Allergy Verified 06/28/25 16:27 Visit Medications Acetaminophen (Acetaminophen 325 Mg Tablet) 650 mg PO Q6H PRN PRN Reason: Fever >100.4 Stop: 07/28/25 20:03 Acetaminophen (Acetaminophen 325 Mg Tablet) 650 mg PO Q6H PRN PRN Reason: PAIN SCALE 1-3 (mild Stop: 07/28/25 20:03 Folic Acid (Folic Acid 1 Mg Tablet) 1 mg PO BID LADAN Stop: 07/03/25 20:59 Last Admin: 06/28/25 20:31 Dose: 1 mg Pantoprazole Sodium (Protonix/Ns 80mg Iv Premix) 80 mg in 100 mls @ 10 mls/hr IV X1 ONE Stop: 06/29/25 02:33 Last Admin: 06/28/25 18:13 Dose: 10 mls/hr Octreotide Acetate 1,000 mcg/ (Sodium Chloride) 102 mls @ 5.1 mls/hr IV .Q20H LADAN; Protocol Stop: 07/03/25 16:59 Octreotide Acetate 1,000 mcg/ (Sodium Chloride) 102 mls @ 5.1 mls/hr IV .Q20H LADAN; Protocol Stop: 06/29/25 12:59 Last Admin: 06/28/25 18:10 Dose: 50 mcg/hr, 5.1 mls/hr Sodium Chloride (Ns) 1,000 mls @ 75 mls/hr IV .[id number] LADAN Stop: 06/29/25 23:09 Last Admin: 06/28/25 20:32 Dose: 75 mls/hr Lorazepam (Lorazepam 0.5 Mg Tablet) 1 mg PO Q6HR PRN PRN Reason: CIWA SCORE 7-11 Stop: 07/03/25 20:18 Last Admin: 06/28/25 20:31 Dose: 1 mg Lorazepam (Lorazepam 0.5 Mg Tablet) 0.5 mg PO Q4HR PRN PRN Reason: ciwa 2-6 Stop: 07/03/25 22:56 Lorazepam (Lorazepam 0.5 Mg Tablet) 2 mg PO Q4HR PRN PRN Reason: ciwa 12-15 Stop: 07/03/25 22:56 Morphine Sulfate (Morphine Sulf Inj 4 Mg/Ml Vial) 2 mg IVP Q6HR PRN PRN Reason: Pain Scale 4-10 (Severe Stop: 07/03/25 20:03 Ondansetron HCl (Ondansetron Inj 2 Mg/Ml Inj 2 Ml) 4 mg IVP Q6H PRN; Protocol PRN Reason: NAUSEA OR VOMITING Stop: 07/28/25 20:03 Pantoprazole Sodium (Pantoprazole Inj 40 Mg Vial) 40 mg IVP BID LADAN Stop: 07/28/25 20:59 Last Admin: 06/28/25 20:31 Dose: 40 mg Thiamine HCl (Thiamine 100 Mg Tablet) 100 mg PO BID LADAN Stop: 07/03/25 20:59 Last Admin: 06/28/25 20:31 Dose: 100 mg Discontinued Medications Chlordiazepoxide HCl (Chlordiazepoxide Hcl 25 Mg Capsule) 25 mg PO Q4HR PRN PRN Reason: CIWA >12 Stop: 06/29/25 20:15 Folic Acid (Folic Acid Inj 1 Mg/0.2 Ml) 1 mg IVP X1 ONE Stop: 06/28/25 16:16 Last Admin: 06/28/25 16:43 Dose: 1 mg Lactated Ringer's (Lactated Ringers) 500 mls @ 999 mls/hr IV .Q31M ONE Stop: 06/28/25 16:41 Last Admin: 06/28/25 16:12 Dose: Not Given Thiamine HCl 100 mg/ Sodium (Chloride) 101 mls @ 202 mls/hr IV X1 ONE Stop: 06/28/25 16:44 Last Admin: 06/28/25 17:45 Dose: Not Given Lactated Ringer's (Lactated Ringers) 1,000 mls @ 999 mls/hr IV .Q1H1M ONE Stop: 06/28/25 17:17 Last Infusion: 06/28/25 17:21 Dose: Infused Pantoprazole Sodium (Protonix/Ns 80mg Iv Premix) 80 mg in 100 mls @ 400 mls/hr IV X1 ONE Stop: 06/28/25 16:33 Last Infusion: 06/28/25 17:07 Dose: Infused Lactated Ringer's (Lactated Ringers) 1,000 mls @ 999 mls/hr IV .Q1H1M ONE Stop: 06/28/25 18:37 Last Infusion: 06/28/25 19:14 Dose: Infused Lorazepam (Lorazepam 2 Mg/Ml Vial) 1 mg IVP X1 ONE Stop: 06/28/25 16:25 Last Admin: 06/28/25 16:43 Dose: 1 mg Lorazepam (Lorazepam 0.5 Mg Tablet) 0.5 mg PO Q8HR PRN PRN Reason: ciwa 2-6 Stop: 07/03/25 22:56 Lorazepam (Lorazepam 0.5 Mg Tablet) 1 mg PO Q8HR PRN PRN Reason: ci03-21 Stop: 07/03/25 22:56 Lorazepam (Lorazepam 0.5 Mg Tablet) 2 mg PO Q8HR PRN PRN Reason: 08-25 Stop: 07/03/25 22:56 Lorazepam (Lorazepam 0.5 Mg Tablet) 2 mg PO Q4HR PRN PRN Reason: 08-25 Stop: 07/03/25 22:56 Lorazepam (Lorazepam 0.5 Mg Tablet) 1 mg PO Q4HR PRN PRN Reason: ci- Stop: 07/03/25 22:56 Octreotide Acetate (Octreotide Acet Inj 50 Mcg/Ml Vial) 50 mcg IV X1 ONE Stop: 06/28/25 16:41 Last Admin: 06/28/25 17:15 Dose: 50 mcg Ondansetron HCl (Ondansetron Inj 2 Mg/Ml Inj 2 Ml) 4 mg IVP X1 ONE; Protocol Stop: 06/28/25 16:11 Last Admin: 06/28/25 16:17 Dose: 4 mg Ondansetron HCl (Ondansetron Inj 2 Mg/Ml Inj 2 Ml) 4 mg IVP X1 ONE; Protocol Stop: 06/28/25 16:16 Last Admin: 06/28/25 17:45 Dose: Not Given Thiamine HCl (Thiamine Inj 100 Mg/Ml Vial 2 Ml) 100 mg IV X1 ONE Stop: 06/28/25 16:31 Last Admin: 06/28/25 16:43 Dose: 100 mg Assessment & Plan Plan This is a 44-year-old male with Past medical history of alcohol use disorder presented to the ED with complaints of abdominal pain, vomiting following rat poison ingestion.He was admitted for Observation of CBC Post Rat poisoning ingestion. # ? Upper GI Bleed # Suicidal Ideation # Rat posioning. Coffee ground emesis>15 episodes and Tanvir blood on vomiting, history of ingestion of rat poisoning PT/INR looks normal Poison control contacted Recommended CBC for every 12 hours and if any abnormal value arises then shift CBC for every 4-6 hours and contact Poison control Usually Rat Poisoning which include super warfarin anticoagulants and it takes like 5 days for the effect to be started. - Putting him on n.p.o. - Ordered Protonix 40 mg twice daily, Octeotride given in ED - consulted Gastroenterology - possible endoscopy tomorrow - Follow up poison control recommendations - on 1798 medical hold, will need CRISIS evaluation due to suicide ideation and attempt - Consider psychiatric evaluation outpatient. # TOMAS Creatinine 1.8 Last known Creatinine 0.8 in 03/05. - starting on IV Fluids. # Alcohol use disorder. -Started on CIWA protocol. - consider SW Consultation. #Hyperammonemia ammonia 57, likely in the setting of alcohol abuse - consider Starting on Lactulose Code status: DNR DVT prophylaxis:SCD Diet: NPO Pace: None Lines: PIV Supplemental O2: PRN Disposition: Tele Discussed this case with my senior Dr. Jaramillo and my attending Dr. Dolan. Enrike Mendosa MD ,PGY1 Attending Provider Attestation/Addendum 44-year-old male patient with alcohol use disorder was admitted for coffee-ground emesis. There is also report of patient ingesting rat poison. Poison control was contacted by ER. Patient needs to be admitted. He will be seen by Dr. Dale from GI. Adverse effect of blood poison ingestion will be monitored. Check coagulation parameters. Coordinate with poison control. I discussed with and supervised the resident physician who took care of this patient. I agree with the assessment and plan as above.
[2025-06-29] VITALS (18 sets, daily range): BP systolic 111–150; BP diastolic 61–92; PULSE 56–86; RESP 15–22; TEMP 36.4–37.2; O2SAT 87–99; BMI 27.4
[2025-06-29] MEDS: ONDANSETRON INJ 2 MG/ML INJ 2 ML 4 MG IVP (00:23)
[2025-06-29 05:23] LABS: INR 1.0 (0.9-1.3); Prothrombin Time 10.9 Seconds (9.0-12.2)
[2025-06-29 05:51] LABS: Alanine Aminotransferase 110 U/L (10-49); Albumin, Serum 3.9 gm/dL (3.5-5.0); Albumin/Globulin Ratio 1.6 (1.2-2.2); Alkaline Phosphatase 50 U/L (46-116); Anion Gap 13 (7-16); Aspartate Amino Transferase 401 U/L (0-34); BUN/Creatinine Ratio 6 Ratio (12-20); Bilirubin,Total 1.4 mg/dL (0.3-1.2); Blood Urea Nitrogen 14 mg/dL (9-23); Calcium 8.1 mg/dL (8.3-10.6); Calcium (Corrected) 8.2 mg/dL (8.5-10.1); Carbon Dioxide 24.6 mMol/L (20.0-31.0); Cardiac Risk Estimate 3.2 RATIO (4.0-6.7); Chloride 98 mMol/L (98-107); Cholesterol 142 mg/dL (132-200); Creatinine (Component) 2.4 mg/dL (0.6-1.3); Estimated Creatinine Clearance 38.8 mL/min (>60); Globulin 2.4 gm/dL (2.3-3.5); Glucose 115 mg/dL (74-106); HDL Cholesterol 45 mg/dL (40-60); LDL Cholesterol,Calculated 58 mg/dL (0-130); Magnesium 2.9 mg/dL (1.6-2.6); Osmolality,Calculated 273 (275-295); Phosphorous 6.3 mg/dL (2.4-5.1); Potassium 3.8 mMol/L (3.4-5.1); Sodium 136 mMol/L (136-145); Total Protein 6.3 gm/dL (5.7-8.2); Triglycerides 197 mg/dL (30-150); eGFR 33 See Note
[2025-06-29] MEDS: HEPARIN SOD INJ 5000 UNIT/ML VIAL SC ×2 (09:27→13:00)
[2025-06-29] MEDS: THIAMINE 100 MG TABLET PO ×2 (09:27→21:13)
[2025-06-29] MEDS: FOLIC ACID 1 MG TABLET PO ×2 (09:28→21:13)
[2025-06-29] MEDS: MORPHINE SULF INJ 4 MG/ML VIAL 2 MG IVP (09:52)
[2025-06-29] MEDS: SODIUM CHLORIDE 0.9% 1000 ML 1,000 ML 75 ML IV (09:53)
[2025-06-29 09:54] LABS: Basophils # (Auto) 0.0 Thou/mm3 (0.0-0.2); Basophils % (Auto) 0 % (0-2.5); Eosinophils # (Auto) 0.0 Thou/mm3 (0.0-0.5); Eosinophils % (Auto) 0 % (0-10); Hematocrit 39.8 % (41.0-53.0); Hemoglobin 14.2 g/dL (13.5-16.0); Immature Granulocytes Auto 0.02 Thou/mm3 (0.00-0.00); Lymphocytes # (Auto) 1.0 Thou/mm3 (1.0-4.8); Lymphocytes % (Auto) 10 % (10-50); Mean Corpuscular HGB Conc 35.7 g/dl (31.0-37.0); Mean Corpuscular Hemoglobin 31.7 pg (25.0-35.0); Mean Corpuscular Volume 89 fL (80-100); Monocytes # (Auto) 0.8 Thou/mm3 (0.0-0.8); Monocytes % (Auto) 8 % (0-12); Neutrophils # (Auto) 8.1 Thou/mm3 (1.8-7.7); Neutrophils % (Auto) 82 % (37-80); Nucleated Red Blood Cell # 0.00 Thou/mm3 (0.00-0.00); Nucleated Red Blood Cell % 0 /100 WBC (0); Platelet Count 191 Thou/mm3 (140-440); RDW Standard Deviation 39.8 fL (35.1-43.9); Red Blood Count 4.48 Miln/mm3 (4.50-5.90); White Blood Count 9.9 Thou/mm3 (3.8-10.6)
--- NOTE | 2025-06-29 11:30 | PC.SS ---
Addendum entered by KRISTA Garcia 06/29/25 15:08: Rounding note: not medically clear, per poison control monitor for five days. pending gi rec. Addendum entered by KRISTA Garcia 06/29/25 13:24: SS udpate: FAGOTER spoke to Dr. Hilario who stated patient is not medically clear and will need a few more days before he is cleared, FAGOTER notified that patient will need mental health evaluation. Addendum entered by KRISTA Garcia 06/29/25 11:40: SS update: on o2 2L. Original Note: Initial: Patient is a 44 year old male patient presenting to the hospital for rat poison ingestion. FAGOTER made face to face contact with patient at bedside, role and reason for visit was explained. Patient confirmed demographic information and stated that he lives at home with his two sons. Patient stated that in case he is unable to make medical decisions on his own he would like his son Jose Shaikh PH: [phone] to make them. 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 Patient stated that once medically clear he would like to return home. D/c: home PCP: does not have one Decision maker: Jose Shaikh [phone]
[2025-06-29] MEDS: ACETAMINOPHEN 325 MG TABLET 650 MG PO (13:00)
[2025-06-29] MEDS: OCTREOTIDE ACET INJ 1,000 MCG in SODIUM CHLORIDE 0.9% 100 ML 5.1 MCG IV (13:01)
--- NOTE | 2025-06-29 13:20 | PD.RESPRO ---
Documentation for date of: 06/29/25 Senior resident attestation: Patient evaluated and examined at the bedside, plan of care discussed with rest of the team including my attending physician, except as noted. Patient 44-year-old male with a past medical history of alcohol abuse disorder, prior history of GI bleed who presented following suicidal attempt after ingesting at poison and drinking 1 bottle of vodka. Was consulted, EGD was done which showed esophageal ulcers and gastritis, biopsies taken, recommended to continue octreotide till tomorrow morning, continue Protonix twice daily, PUD diet. Poison control recommended to continue monitoring INR q 12 hrs for upto 5 days after ingestion, WIll get Crisis evaluation when medically cleared due to Suicidal attempt. Riley PGY3 Subjective Subjective Interval history: Seen and examined at bedside today; there were no acute overnight events. Patient stated that he had kicked out his and daughter from his home recently; this became a significant stressor. approximately 1 week ago he began drinking heavily up to 1 bottle of tequila a day. last Monday he ingested rat poison combined with approximately 1 L of vodka; he began to vomit shortly afterwards approximately 15 times with a small amount of blood occurring as part of the vomitus. He also started to feel significant cramping in his legs so much so that he could not get up and when he did attempted to get up he fell and hit his head. Patient states that he has not had suicidal ideation before. Poison control was recontacted regarding this case and they reiterated that PT/INR/PTT should be done every 12 hours for 5 days postingestion to rule out any risk for bleeding. Exam Vital Signs Temp Pulse Resp BP Pulse Ox O2 Del Method O2 Flow Rate 99.0 F 86 16 111/61 87 L Room Air 4 06/29/25 08:00 06/29/25 08:00 06/29/25 08:00 06/29/25 08:00 06/29/25 08:00 06/29/25 08:00 06/29/25 04:00 Narrative Exam General: A/O x3, no acute distress, well-nourished, well-developed Eyes: PERRL, EOMI. Anicteric, vision grossly intact. Ears: No ear pain, no ear discharge, Hearing grossly intact. Nose: No nasal discharge. Mouth/Throat: Moist mucous membranes, no redness, no lesions. Neck: Neck supple, non-tender, no cervical lymphadenopathy. Lungs: Clear BESSIE to auscultation and percussion, No accessory muscle use. Cardio: Normal S1/S2, regular rhythm, no murmurs, no JVD or carotid bruits. Abdomen: Soft, tender, no palpable masses, peristalsis present, no guarding or rebound. Extremities: Symmetrical, no significant deformities, no peripheral edema , non-tender, peripheral pulses presents. Skin: No rashes, no lesions, warm to touch. Petechiae on chest. Neuro: No focal neurological deficits. Still feels cramping in legs. Psych: Cooperative, appropriate mood and effect. Objective Labs 06/30/25 09:32 06/30/25 04:20 Labs: Laboratory Results - last 24 hr 06/28/25 06/28/25 06/28/25 16:30 17:15 17:36 WBC 18.4 H RBC 5.02 Hgb 15.9 Hct 44.1 MCV 88 MCH 31.7 MCHC 36.1 RDW Std Deviation 39.8 Plt Count 287 Neut % (Auto) 89 H Lymph % (Auto) 5 L [place] % (Auto) 5 Eos % (Auto) 0 Baso % (Auto) 0 Neut # (Auto) 16.3 H Lymph # (Auto) 0.9 L [place] # (Auto) 1.0 H Eos # (Auto) 0.1 Baso # (Auto) 0.0 Immature Gran # (Auto) 0.14 H Absolute Nucleated RBC 0.00 Immature Gran % 1 H Nucleated RBC % 0 PT 10.9 INR 1.0 VBG pH 7.47 VBG pCO2 32 L VBG pO2 83 H VBG O2 Sat ([place]) 95 L VBG Base Excess 0 Sodium 133 L Potassium 4.1 Chloride 93 L Carbon Dioxide 20.4 Anion Gap 20 H BUN 15 Creatinine 1.9 H Estim Creat Clear Calc 49.0 L eGFR 44 L BUN/Creatinine Ratio 8 L Glucose 135 H Calculated Osmolality 269 L Calcium 9.2 Corrected Calcium 9.2 Phosphorus Magnesium 3.5 H Total Bilirubin 0.8 AST 123 H ALT 73 H Alkaline Phosphatase 61 Ammonia 57 H Total Protein 7.6 Albumin 4.8 Globulin 2.8 Albumin/Globulin Ratio 1.7 Triglycerides Cholesterol LDL Cholesterol, Calc HDL Cholesterol Cholesterol/HDL Ratio TSH 0.93 Thyroxine (T4) 6.3 Ur Collection Type Catheter Urine Color Yellow Urine Clarity Hazy Urine pH 5.5 Ur Specific [place] 1.023 Urine Protein 1+ A Urine Glucose (UA) Negative Urine Ketones 1+ A Urine Blood 3+ A Urine Nitrite Negative Urine Bilirubin Negative Urine Urobilinogen (Auto) Negative Ur Leukocyte Esterase Negative Urine RBC 3 Urine WBC 1 Ur Squamous Epith Cells < 1 Urine Bacteria None Urine Sperm Present A Ur Culture Indicated? Not Indicated Salicylates < 3.0 Urine Opiates Screen Negative Urine Fentanyl Screen Negative Acetaminophen < 2.0 L Ur Barbiturates Screen Negative U Amphetamin/Meth Scrn Negative U Benzodiazepines Scrn Negative U Cocaine Metab Screen Negative U Marijuana (THC) Screen Negative Ethyl Alcohol < 3.0 Blood Type O Positive Antibody Screen NEGATIVE Blood Bank Wristband ID Yes 06/28/25 06/29/25 06/29/25 22:32 04:15 09:18 WBC 11.9 H D 9.9 RBC 4.36 L 4.48 L Hgb 14.0 14.2 Hct 38.3 L 39.8 L MCV 88 89 MCH 32.1 31.7 MCHC 36.6 35.7 RDW Std Deviation 39.8 39.8 Plt Count 202 D 191 Neut % (Auto) 83 H 82 H Lymph % (Auto) 8 L 10 [place] % (Auto) 8 8 Eos % (Auto) 0 0 Baso % (Auto) 0 0 Neut # (Auto) 9.8 H 8.1 H Lymph # (Auto) 1.0 1.0 [place] # (Auto) 1.0 H 0.8 Eos # (Auto) 0.0 0.0 Baso # (Auto) 0.0 0.0 Immature Gran # (Auto) 0.03 H 0.02 H Absolute Nucleated RBC 0.00 0.00 Immature Gran % 0 0 Nucleated RBC % 0 0 PT 10.9 INR 1.0 VBG pH VBG pCO2 VBG pO2 VBG O2 Sat ([place]) VBG Base Excess Sodium 136 Potassium 3.8 Chloride 98 Carbon Dioxide 24.6 Anion Gap 13 BUN 14 Creatinine 2.4 H D Estim Creat Clear Calc 38.8 L eGFR 33 L BUN/Creatinine Ratio 6 L Glucose 115 H Calculated Osmolality 273 L Calcium 8.1 L Corrected Calcium 8.2 L Phosphorus 6.3 H Magnesium 2.9 H Total Bilirubin 1.4 H D AST 401 H ALT 110 H Alkaline Phosphatase 50 Ammonia Total Protein 6.3 Albumin 3.9 D Globulin 2.4 Albumin/Globulin Ratio 1.6 Triglycerides 197 H Cholesterol 142 LDL Cholesterol, Calc 58 HDL Cholesterol 45 Cholesterol/HDL Ratio 3.2 L TSH Thyroxine (T4) Ur Collection Type Urine Color Urine Clarity Urine pH Ur Specific [place] Urine Protein Urine Glucose (UA) Urine Ketones Urine Blood Urine Nitrite Urine Bilirubin Urine Urobilinogen (Auto) Ur Leukocyte Esterase Urine RBC Urine WBC Ur Squamous Epith Cells Urine Bacteria Urine Sperm Ur Culture Indicated? Salicylates Urine Opiates Screen Urine Fentanyl Screen Acetaminophen Ur Barbiturates Screen U Amphetamin/Meth Scrn U Benzodiazepines Scrn U Cocaine Metab Screen U Marijuana (THC) Screen Ethyl Alcohol Blood Type Antibody Screen Blood Bank Wristband ID ABG Interpretation ABG results: 06/28/25 16:30 VBG pH 7.47 VBG pCO2 32 L VBG pO2 83 H VBG Base Excess 0 Quality Measures Quality Measures none Assessment & Plan Assessment Current Active Medications: Generic Name Dose Route Start Last Admin Trade Name Freq PRN Reason Stop Dose Admin Acetaminophen 650 mg 06/28/25 20:04 Acetaminophen 325 Mg Tablet PO 07/28/25 20:03 Q6H PRN Fever >100.4 Acetaminophen 650 mg 06/28/25 20:04 06/29/25 13:00 Acetaminophen 325 Mg Tablet PO 07/28/25 20:03 650 mg Q6H PRN Administration PAIN SCALE 1-3 (mild Folic Acid 1 mg 06/28/25 21:00 06/29/25 09:28 Folic Acid 1 Mg Tablet PO 07/03/25 20:59 1 mg BID LADAN Administration Heparin Sodium (Porcine) 5,000 unit 06/29/25 06:45 06/29/25 13:00 Heparin Sod Inj 5000 Unit/Ml Vial SC 07/13/25 06:44 5,000 unit Q8HR LADAN Administration Octreotide Acetate 1,000 mcg/ 102 mls @ 5.1 mls/hr 06/29/25 13:00 06/29/25 13:01 Sodium Chloride IV 07/03/25 16:59 50 mcg/hr .Q20H LADAN 5.1 mls/hr Protocol Administration 50 MCG/HR Sodium Chloride 1,000 mls @ 75 mls/hr 06/28/25 20:30 06/29/25 09:53 Ns IV 06/29/25 23:09 75 mls/hr .[id number] LADAN Administration Lorazepam 0.5 mg 06/28/25 22:59 06/29/25 13:00 Lorazepam 0.5 Mg Tablet PO 07/03/25 22:56 0.5 mg Q4HR PRN Administration ciwa 2-6 Lorazepam 2 mg 06/28/25 23:15 Lorazepam 0.5 Mg Tablet PO 07/03/25 22:56 Q4HR PRN ciwa 12-15 Lorazepam 1 mg 06/29/25 04:20 06/29/25 09:28 Lorazepam 0.5 Mg Tablet PO 07/03/25 20:18 1 mg Q4HR PRN Administration CIWA SCORE 7-11 Morphine Sulfate 2 mg 06/28/25 20:04 06/29/25 09:52 Morphine Sulf Inj 4 Mg/Ml Vial IVP 07/03/25 20:03 2 mg Q6HR PRN Administration Pain Scale 4-10 (Severe Ondansetron HCl 4 mg 06/28/25 20:04 06/29/25 00:23 Ondansetron Inj 2 Mg/Ml Inj 2 Ml IVP 07/28/25 20:03 4 mg Q6H PRN Administration NAUSEA OR VOMITING Protocol Pantoprazole Sodium 40 mg 06/28/25 21:00 06/29/25 09:28 Pantoprazole Inj 40 Mg Vial IVP 07/28/25 20:59 40 mg BID LADAN Administration Thiamine HCl 100 mg 06/28/25 21:00 06/29/25 09:27 Thiamine 100 Mg Tablet PO 07/03/25 20:59 100 mg BID LADAN Administration Plan Patient is a 44-year-old male with PMH of alcohol use disorder presented to the ED with complaints of abdominal pain, vomiting following rat poison ingestion. #Suicide attempt via rat poison and alcohol combination #Alcohol use disorder #Hyperammonemia Patient admitted to suicide attempt on Monday via rat poison combined with 1 L of vodka. Patient also endorses previous alcohol use disorder including as of last week ingestion up to 1 bottle of tequila a day. INR on admission 1.0. Patient stated that he vomited specks of blood after ingestion; patient ammonia was 57 on admission Plan: GI consulted, will do EGD today secondary to potential hematemesis CIWA protocol started Librium 25 every 8 hours started secondary to likely alcohol withdrawal Crisis team activated will see him Patient started on thiamine 100 and folic acid 1 Continue octreotide Protonix 40 twice daily Poison control recommendations received thank you very much?monitor PT PTT and INR every 12 hours for 5 days after ingestion #TOMAS Creatinine 1.9 on admission; today 2.4. Plan: Likely due to rat poison and alcohol ingestion Receiving 1 L NS at 75 cc/h Continue to monitor over the following days Disposition: med-tele DVT prophylaxis: Heparin 5000 subcu every 8 hours GI prophylaxis: Protonix 40 twice daily Diet: N.p.o. for EGD Lines: Peripheral IV CODE STATUS: DNR This case was discussed with my attending physician, Dr. Hilario, and senior resident, Dr. Lin. David Kelsey MD-PhD, PGY1 Attending Provider Attestation/Addendum I have seen and examined the patient. I was physically present for the iyer portions of the services provided including history, physical exam, diagnosis, treatment plans and orders. I agree with assessment and plan of care as documented by residents. Even though this this note was carefully revised there may still be minor errors in licensed esthetician due to voice recognition software. Barron Hilario MD
--- NOTE | 2025-06-29 16:07 | PD.IMCONS ---
HPI Data of Consult Requesting Physician: Ramírez Dolan MD Primary Care Provider: Physician No Primary/Family Consult Narrative Reason for consult: Hematemesis 80 History of present illness: 44 years old male came into the emergency room with nausea vomiting multiple episodes of hematemesis after drinking rat poison as well as a liter of vodka He is a chronic abuser of alcohol cc:: cc: Ramírez Dolan MD Review of Systems Review of Systems Systems Reviewed: All systems reviewed, normal except as documented Meds Home Medications and Allergies Home Medications ?Medication ?Instructions ?Recorded ?Confirmed ?Type aripiprazole 20 mg tablet 20 mg PO QDAY 02/17/21 02/17/21 History buspirone 5 mg tablet 5 mg PO BID 02/17/21 02/17/21 History naproxen sodium 550 mg tablet 550 mg PO BID 02/17/21 02/17/21 History prazosin 1 mg capsule 1 mg PO HS 02/17/21 02/17/21 History prazosin 5 mg capsule 5 mg PO HS 02/17/21 02/17/21 History trazodone 50 mg tablet 50 mg PO HS 02/17/21 02/17/21 History Allergies Allergy/AdvReac Type Severity Reaction Status Date / Time No Known Allergies Allergy Verified 06/28/25 16:27 Exam Vital Signs Temp Pulse Resp BP Pulse Ox O2 Del Method O2 Flow Rate 98.9 F 60 20 111/73 92 L Room Air 4 06/29/25 12:00 06/29/25 12:00 06/29/25 12:00 06/29/25 12:00 06/29/25 12:00 06/29/25 12:00 06/29/25 04:00 Constitutional Comments: Chronically ill-appearing Routine Respiratory Exam Comments: Normal to auscultation Routine Abdominal Exam Comments: Soft nontender Results Labs 06/29/25 09:18 06/29/25 04:15 Labs: Short CBC 06/28/25 06/28/25 06/29/25 Range/Units 16:30 22:32 09:18 WBC 18.4 H 11.9 H D 9.9 (3.8-10.6) Thou/mm3 Hgb 15.9 14.0 14.2 (13.5-16.0) g/dL Hct 44.1 38.3 L 39.8 L (41.0-53.0) % Plt Count 287 202 D 191 (140-440) Thou/mm3 BMP 06/28/25 06/29/25 16:30 04:15 Sodium 133 L 136 Potassium 4.1 3.8 Chloride 93 L 98 Carbon Dioxide 20.4 24.6 BUN 15 14 Creatinine 1.9 H 2.4 H D Glucose 135 H 115 H Calcium 9.2 8.1 L Liver Function 06/28/25 06/29/25 Range/Units 16:30 04:15 Total Bilirubin 0.8 1.4 H D (0.3-1.2) mg/dL AST 123 H 401 H (0-34) U/L ALT 73 H 110 H (10-49) U/L Alkaline Phosphatase 61 50 (46-116) U/L Albumin 4.8 3.9 D (3.5-5.0) gm/dL Urine 06/28/25 Range/Units 17:15 Urine Color Yellow (Lt Yel-Yel) Urine Clarity Hazy (Clear/Hazy) Urine pH 5.5 (5.0-7.0) Ur Specific Flasher 1.023 (1.001-1.035) Urine Protein 1+ A (Neg - Trace) Urine Glucose (UA) Negative (Negative) ABG Interpretation ABG results: 06/28/25 16:30 VBG pH 7.47 VBG pCO2 32 L VBG pO2 83 H VBG Base Excess 0 Assessment and Plan Additional Assessment & Plan Additional Plan: # Multiple episodes of hematemesis most likely Lynn-Cavazos tear although underlying portal hypertension due to chronic abuse of alcohol cannot be fully ruled out # History of chronic anxiety and depression # Suicidal ideation with ingestion of rat poison Plan N.p.o. consent obtained for fiberoptic esophagogastroduodenoscopy with possible therapeutic intervention possible biopsy under intravenous moderate sedation Thank you very much for the opportunity to participate in the care of this patient
--- NOTE | 2025-06-29 18:11 | SUR.PHASEI ---
pt received from OR in recovery bay 1. pt asleep but responds to voice, breathing unlabored on 2l nc. v/s stable. report received from Silvia MCCANN.
--- NOTE | 2025-06-29 18:41 | SUR.PHASEI ---
pt asleep but responds to voice, breathing unlabored on 2l nc. v/s stable. report called to Gabi MCCANN. pt will be transferred to room at this time.
[2025-06-29 22:22] LABS: Basophils # (Auto) 0.0 Thou/mm3 (0.0-0.2); Basophils % (Auto) 1 % (0-2.5); Eosinophils # (Auto) 0.0 Thou/mm3 (0.0-0.5); Eosinophils % (Auto) 0 % (0-10); Hematocrit 40.2 % (41.0-53.0); Hemoglobin 13.7 g/dL (13.5-16.0); Immature Granulocytes Auto 0.01 Thou/mm3 (0.00-0.00); Lymphocytes # (Auto) 1.5 Thou/mm3 (1.0-4.8); Lymphocytes % (Auto) 19 % (10-50); Mean Corpuscular HGB Conc 34.1 g/dl (31.0-37.0); Mean Corpuscular Hemoglobin 31.4 pg (25.0-35.0); Mean Corpuscular Volume 92 fL (80-100); Monocytes # (Auto) 0.5 Thou/mm3 (0.0-0.8); Monocytes % (Auto) 6 % (0-12); Neutrophils # (Auto) 6.1 Thou/mm3 (1.8-7.7); Neutrophils % (Auto) 75 % (37-80); Nucleated Red Blood Cell # 0.00 Thou/mm3 (0.00-0.00); Nucleated Red Blood Cell % 0 /100 WBC (0); Platelet Count 180 Thou/mm3 (140-440); RDW Standard Deviation 40.6 fL (35.1-43.9); Red Blood Count 4.36 Miln/mm3 (4.50-5.90); White Blood Count 8.1 Thou/mm3 (3.8-10.6)
[2025-06-30] VITALS (8 sets, daily range): BP systolic 127–146; BP diastolic 74–96; PULSE 53–79; RESP 14–99; TEMP 36.1–36.9; O2SAT 93–98; BMI 27.8
[2025-06-30 06:48] LABS: Alanine Aminotransferase 182 U/L (10-49); Albumin, Serum 3.9 gm/dL (3.5-5.0); Albumin/Globulin Ratio 1.6 (1.2-2.2); Alkaline Phosphatase 47 U/L (46-116); Anion Gap 12 (7-16); Aspartate Amino Transferase 557 U/L (0-34); BUN/Creatinine Ratio 8 Ratio (12-20); Bilirubin,Total 1.2 mg/dL (0.3-1.2); Blood Urea Nitrogen 16 mg/dL (9-23); Calcium 8.0 mg/dL (8.3-10.6); Calcium (Corrected) 8.1 mg/dL (8.5-10.1); Carbon Dioxide 26.1 mMol/L (20.0-31.0); Chloride 100 mMol/L (98-107); Creatinine (Component) 2.0 mg/dL (0.6-1.3); Estimated Creatinine Clearance 46.8 mL/min (>60); Globulin 2.5 gm/dL (2.3-3.5); Glucose 98 mg/dL (74-106); Magnesium 2.4 mg/dL (1.6-2.6); Osmolality,Calculated 276 (275-295); Phosphorous 3.5 mg/dL (2.4-5.1); Potassium 3.6 mMol/L (3.4-5.1); Sodium 138 mMol/L (136-145); Total Protein 6.4 gm/dL (5.7-8.2); eGFR 42 See Note
[2025-06-30 08:51] LABS: INR 1.0 (0.9-1.3); Partial Thromboplastin Time 29.1 Seconds (22.0-36.0); Prothrombin Time 10.9 Seconds (9.0-12.2)
[2025-06-30] MEDS: THIAMINE 100 MG TABLET PO ×2 (08:59→21:23)
[2025-06-30] MEDS: FOLIC ACID 1 MG TABLET PO ×2 (08:59→21:23)
--- NOTE | 2025-06-30 09:54 | PC.CC ---
[id number] contacted residents for Team C for an update. However Team C stated they would call ASW with an update as there is no current update at this time.
[2025-06-30 10:05] LABS: Basophils # (Auto) 0.1 Thou/mm3 (0.0-0.2); Basophils % (Auto) 1 % (0-2.5); Eosinophils # (Auto) 0.0 Thou/mm3 (0.0-0.5); Eosinophils % (Auto) 1 % (0-10); Hematocrit 39.7 % (41.0-53.0); Hemoglobin 13.4 g/dL (13.5-16.0); Immature Granulocytes Auto 0.01 Thou/mm3 (0.00-0.00); Lymphocytes # (Auto) 1.1 Thou/mm3 (1.0-4.8); Lymphocytes % (Auto) 17 % (10-50); Mean Corpuscular HGB Conc 33.8 g/dl (31.0-37.0); Mean Corpuscular Hemoglobin 30.8 pg (25.0-35.0); Mean Corpuscular Volume 91 fL (80-100); Monocytes # (Auto) 0.5 Thou/mm3 (0.0-0.8); Monocytes % (Auto) 7 % (0-12); Neutrophils # (Auto) 5.0 Thou/mm3 (1.8-7.7); Neutrophils % (Auto) 75 % (37-80); Nucleated Red Blood Cell # 0.00 Thou/mm3 (0.00-0.00); Nucleated Red Blood Cell % 0 /100 WBC (0); Platelet Count 177 Thou/mm3 (140-440); RDW Standard Deviation 39.8 fL (35.1-43.9); Red Blood Count 4.35 Miln/mm3 (4.50-5.90); White Blood Count 6.6 Thou/mm3 (3.8-10.6)
--- NOTE | 2025-06-30 11:18 | PC.NURSE ---
Dr. Kelsey aware Oxygen nasal cannula 2L placed on patient as pt. was desaturating to 77% on RA while sleeping.
--- NOTE | 2025-06-30 13:03 | ESPR_ITS ---
Documentation for date of: 06/30/25 Senior resident attestation: Patient evaluated and examined at the bedside, plan of care discussed with rest of the team including my attending physician, except as noted. Patient 44-year-old male with a past medical history of alcohol abuse disorder, prior history of GI bleed who presented following suicidal attempt after ingesting at poison and drinking 1 bottle of vodka. Was consulted, EGD was done which showed esophageal ulcers and gastritis, biopsies taken, recommended to continue octreotide till tomorrow morning, continue Protonix twice daily, PUD diet. Poison control recommended to continue monitoring INR q 12 hrs for upto 5 days after ingestion, CIWA score upto 14 overnightm given previous history high risk of alchohol withdrawal, increased ciwa meds. Will get Crisis evaluation when medically cleared due to Suicidal attempt. Quresh PGY3 Subjective Subjective Interval history: Patient was seen and examined at bedside today; overnight, had CIWA score rise to 14 in the a.m. and was given lorazepam. On examination, patient states that he is feeling much better and that he is able to stand up and walk to the bathroom; previously he was unable to lift his legs. CIWA score was 6 during exam; EGD showed gastric ulcers and esophagitis, but no Lynn-Cavazos. Spoke with patient today about CODE STATUS, he stated that his initial DNR status was because he believed that he would not walk again; he now wishes to change his status to full code. When sleeping, nursing noticed today that he was desatting to the 70s/80s; he was therefore placed on 2 L nasal cannula while sleeping and this may be suggestive of an BABAK picture. Exam Vital Signs Temp Pulse Resp BP Pulse Ox O2 Del Method O2 Flow Rate 97.2 F 68 18 128/74 97 Nasal Cannula 2 06/30/25 12:00 06/30/25 08:00 06/30/25 12:00 06/30/25 12:00 06/30/25 12:00 06/30/25 12:00 06/30/25 12:00 Narrative Exam General: A/O x3, no acute distress, well-nourished, well-developed Eyes: PERRL, EOMI. Anicteric, vision grossly intact. Ears: No ear pain, no ear discharge, Hearing grossly intact. Nose: No nasal discharge. Mouth/Throat: Moist mucous membranes, no redness, no lesions. Neck: Neck supple, non-tender, no cervical lymphadenopathy. Lungs: Clear BESSIE to auscultation and percussion, No accessory muscle use. Cardio: Normal S1/S2, regular rhythm, no murmurs, no JVD or carotid bruits. Abdomen: Soft, mild RLQ tenderness, no palpable masses, peristalsis present, no guarding or rebound. Extremities: Symmetrical, no significant deformities, no peripheral edema , non-tender, peripheral pulses presents. Skin: No rashes, no lesions, warm to touch. Petechiae on chest. Neuro: No focal neurological deficits. 5 out of 5 strength in lower extremities. Psych: Cooperative, appropriate mood and effect. Objective Labs 07/01/25 06:20 07/01/25 06:20 Labs: Laboratory Results - last 24 hr 06/29/25 06/30/25 06/30/25 21:49 04:20 09:32 WBC 8.1 6.6 RBC 4.36 L 4.35 L Hgb 13.7 13.4 L Hct 40.2 L 39.7 L MCV 92 91 MCH 31.4 30.8 MCHC 34.1 33.8 RDW Std Deviation 40.6 39.8 Plt Count 180 177 Neut % (Auto) 75 75 Lymph % (Auto) 19 17 [place] % (Auto) 6 7 Eos % (Auto) 0 1 Baso % (Auto) 1 1 Neut # (Auto) 6.1 5.0 Lymph # (Auto) 1.5 1.1 [place] # (Auto) 0.5 0.5 Eos # (Auto) 0.0 0.0 Baso # (Auto) 0.0 0.1 Immature Gran # (Auto) 0.01 H 0.01 H Absolute Nucleated RBC 0.00 0.00 Immature Gran % 0 0 Nucleated RBC % 0 0 PT 10.9 INR 1.0 APTT 29.1 Sodium 138 Potassium 3.6 Chloride 100 Carbon Dioxide 26.1 Anion Gap 12 BUN 16 Creatinine 2.0 H Estim Creat Clear Calc 46.8 L eGFR 42 L BUN/Creatinine Ratio 8 L Glucose 98 Calculated Osmolality 276 Calcium 8.0 L Corrected Calcium 8.1 L Phosphorus 3.5 Magnesium 2.4 Total Bilirubin 1.2 AST 557 H* ALT 182 H Alkaline Phosphatase 47 Total Protein 6.4 Albumin 3.9 Globulin 2.5 Albumin/Globulin Ratio 1.6 ABG Interpretation ABG results: 06/28/25 16:30 VBG pH 7.47 VBG pCO2 32 L VBG pO2 83 H VBG Base Excess 0 Quality Measures Quality Measures none Assessment & Plan Assessment Current Active Medications: Generic Name Dose Route Start Last Admin Trade Name Freq PRN Reason Stop Dose Admin Acetaminophen 650 mg 06/28/25 20:04 Acetaminophen 325 Mg Tablet PO 07/28/25 20:03 Q6H PRN Fever >100.4 Acetaminophen 650 mg 06/28/25 20:04 06/29/25 13:00 Acetaminophen 325 Mg Tablet PO 07/28/25 20:03 650 mg Q6H PRN Administration PAIN SCALE 1-3 (mild Hydrocodone Bitart/Acetaminophen 1 tab 06/30/25 09:17 Hydrocodone/Apap 5/325 Tablet PO 07/05/25 09:16 Q6HR PRN PAIN SCALE 4-10(Mod-Sev Chlordiazepoxide HCl 50 mg 06/30/25 14:00 Chlordiazepoxide Hcl 25 Mg Capsule PO 07/05/25 13:59 Q8HR LADAN Folic Acid 1 mg 06/28/25 21:00 06/30/25 08:59 Folic Acid 1 Mg Tablet PO 07/03/25 20:59 1 mg BID LADAN Administration Lorazepam 1 mg 06/30/25 09:11 Lorazepam 0.5 Mg Tablet PO 07/03/25 22:56 Q4HR PRN ciwa 2-6 Lorazepam 2 mg 06/30/25 09:12 Lorazepam 0.5 Mg Tablet PO 07/03/25 20:18 Q4HR PRN CIWA SCORE 7-11 Lorazepam 4 mg 06/30/25 09:12 Lorazepam 0.5 Mg Tablet PO 07/03/25 22:56 Q4HR PRN ciwa 12-15 Ondansetron HCl 4 mg 06/28/25 20:04 06/29/25 00:23 Ondansetron Inj 2 Mg/Ml Inj 2 Ml IVP 07/28/25 20:03 4 mg Q6H PRN Administration NAUSEA OR VOMITING Protocol Pantoprazole Sodium 40 mg 06/28/25 21:00 06/30/25 08:59 Pantoprazole Inj 40 Mg Vial IVP 07/28/25 20:59 40 mg BID LADAN Administration Thiamine HCl 100 mg 06/28/25 21:00 06/30/25 08:59 Thiamine 100 Mg Tablet PO 07/03/25 20:59 100 mg BID LADAN Administration Plan Patient is a 44-year-old male with PMH of alcohol use disorder presented to the ED with complaints of abdominal pain, vomiting following rat poison ingestion. #Suicide attempt via rat poison and alcohol combination #Alcohol use disorder #Hyperammonemia #Alcohol withdrawal Patient admitted to suicide attempt on Monday via rat poison combined with 1 L of vodka. Patient also endorses previous alcohol use disorder including as of last week ingestion up to 1 bottle of tequila a day. INR on admission 1.0. Patient stated that he vomited specks of blood after ingestion; patient ammonia was 57 on admission. Plan: GI consulted, EGD showed gastritis with no Lynn-Cavazos tear, octreotide stopped CIWA protocol started- CIWA today was 6 Librium 50 every 8 hours secondary to likely alcohol withdrawal Crisis team activated will see him once medically stable Patient on thiamine 100 and folic acid 1 Protonix 40 twice daily Poison control recommendations received thank you very much?monitor PT PTT and INR every 12 hours for 5 days after ingestion (last check Monday?) #TOMAS Creatinine 1.9 on admission; today 2.0. Plan: Likely due to rat poison and alcohol ingestion Continue to monitor over the following days #?BABAK Patient was desatting to 70-80s while sleeping, and required 2L NC to maintain oxygenation while asleep Ddx: potential BABAK? Plan: CPAP while sleeping outpatient referral for sleep study Disposition: med-tele DVT prophylaxis: SCD GI prophylaxis: Protonix 40 twice daily Diet: clear liquid Lines: Peripheral IV CODE STATUS: Full code This case was discussed with my attending physician, Dr. Hilario, and senior resident, Dr. Lin. David Kelsey MD-PhD, PGY1 Attending Provider Attestation/Addendum I have seen and examined the patient. I was physically present for the iyer portions of the services provided including history, physical exam, diagnosis, treatment plans and orders. I agree with assessment and plan of care as documented by residents. Even though this this note was carefully revised there may still be minor errors in reception clerk due to voice recognition software. Barron Hilario MD
--- NOTE | 2025-06-30 13:11 | PC.NURSE ---
Completed Med Rec with pt. Pt. states I dont take any medications anymore, I havent taken medications for 3 months.
--- NOTE | 2025-06-30 14:25 | XR_ITS ---
Examination: Abdomen sonogram, Limited Date and time of exam: June 30, 2025, 1444 hours INDICATIONS: Elevated liver function test on laboratory examination performed 2 days ago Technique: Real-time smith scale transabdominal sonographic images of the upper abdomen obtained. Findings: Negative for gallstones Gallbladder wall 0.36 cm no edema Common bile duct 0.4 cm Pancreatic head 2.5 cm Liver 17.3 cm fatty infiltration no focal liver lesions Normal hepatopetal portal venous Patent IVC IMPRESSION: Negative for cholelithiasis, negative for cholecystitis Mild hepatomegaly
--- NOTE | 2025-06-30 14:46 | PC.SS ---
Rounding Note: Patient is not medically cleared at this time. Patient will require MH evaluation upon medical clearance.
--- NOTE | 2025-06-30 15:49 | PC.NURSE ---
Dr. Mcqueen orders to DC Q6 glucose checks.
--- NOTE | 2025-06-30 15:49 | PD.IMPROG ---
Documentation for date of: 06/30/25 Subjective Subjective Interval history: Hemoglobin hematocrit 13.4 and 39.7 Upper endoscopy showed distal esophageal ulcers Exam Vital Signs Temp Pulse Resp BP Pulse Ox O2 Del Method O2 Flow Rate 97.2 F 68 18 128/74 97 Nasal Cannula 2 06/30/25 12:00 06/30/25 08:00 06/30/25 12:00 06/30/25 12:00 06/30/25 12:00 06/30/25 12:00 06/30/25 12:00 Routine Respiratory Exam Comments: Normal to auscultation Routine Abdominal Exam Comments: Soft nontender Objective Labs 06/30/25 09:32 06/30/25 04:20 Labs: Laboratory Results - last 24 hr 06/29/25 06/30/25 06/30/25 21:49 04:20 09:32 WBC 8.1 6.6 RBC 4.36 L 4.35 L Hgb 13.7 13.4 L Hct 40.2 L 39.7 L MCV 92 91 MCH 31.4 30.8 MCHC 34.1 33.8 RDW Std Deviation 40.6 39.8 Plt Count 180 177 Neut % (Auto) 75 75 Lymph % (Auto) 19 17 [place] % (Auto) 6 7 Eos % (Auto) 0 1 Baso % (Auto) 1 1 Neut # (Auto) 6.1 5.0 Lymph # (Auto) 1.5 1.1 [place] # (Auto) 0.5 0.5 Eos # (Auto) 0.0 0.0 Baso # (Auto) 0.0 0.1 Immature Gran # (Auto) 0.01 H 0.01 H Absolute Nucleated RBC 0.00 0.00 Immature Gran % 0 0 Nucleated RBC % 0 0 PT 10.9 INR 1.0 APTT 29.1 Sodium 138 Potassium 3.6 Chloride 100 Carbon Dioxide 26.1 Anion Gap 12 BUN 16 Creatinine 2.0 H Estim Creat Clear Calc 46.8 L eGFR 42 L BUN/Creatinine Ratio 8 L Glucose 98 Calculated Osmolality 276 Calcium 8.0 L Corrected Calcium 8.1 L Phosphorus 3.5 Magnesium 2.4 Total Bilirubin 1.2 AST 557 H* ALT 182 H Alkaline Phosphatase 47 Total Protein 6.4 Albumin 3.9 Globulin 2.5 Albumin/Globulin Ratio 1.6 Impressions Impression: Distal esophageal ulceration Hemoglobin hematocrit pretty stable Advance diet to peptic ulcer disease diet ABG Interpretation ABG results: 06/28/25 16:30 VBG pH 7.47 VBG pCO2 32 L VBG pO2 83 H VBG Base Excess 0 Assessment & Plan A&P Narrative # Multiple episodes of hematemesis most likely Lynn-Cavazos tear although underlying portal hypertension due to chronic abuse of alcohol cannot be fully ruled out # History of chronic anxiety and depression # Suicidal ideation with ingestion of rat poison Plan N.p.o. consent obtained for fiberoptic esophagogastroduodenoscopy with possible therapeutic intervention possible biopsy under intravenous moderate sedation Thank you very much for the opportunity to participate in the care of this patient Time Spent With Patient Time: Total time spent is greater than 50% in coordination of care (as documented) at patient's floor/unit and/or counseling patient:
--- NOTE | 2025-06-30 20:45 | XR_ITS ---
EXAMINATION: AP chest single view TECHNIQUE: AP portable upright chest single view Date and time: June 30, 2025, 2137 hours INDICATIONS: Shortness of breath today. FINDINGS: Mild elevation right hemidiaphragm. Normal heart size. No pneumonia or pulmonary edema. IMPRESSION: No active disease
[2025-06-30] MEDS: ONDANSETRON INJ 2 MG/ML INJ 2 ML 4 MG IVP (21:23)
[2025-06-30 21:24] LABS: Basophils # (Auto) 0.0 Thou/mm3 (0.0-0.2); Basophils % (Auto) 0 % (0-2.5); Eosinophils # (Auto) 0.1 Thou/mm3 (0.0-0.5); Eosinophils % (Auto) 1 % (0-10); Hematocrit 40.8 % (41.0-53.0); Hemoglobin 14.1 g/dL (13.5-16.0); Immature Granulocytes Auto 0.02 Thou/mm3 (0.00-0.00); Lymphocytes # (Auto) 1.3 Thou/mm3 (1.0-4.8); Lymphocytes % (Auto) 19 % (10-50); Mean Corpuscular HGB Conc 34.6 g/dl (31.0-37.0); Mean Corpuscular Hemoglobin 31.2 pg (25.0-35.0); Mean Corpuscular Volume 90 fL (80-100); Monocytes # (Auto) 0.5 Thou/mm3 (0.0-0.8); Monocytes % (Auto) 7 % (0-12); Neutrophils # (Auto) 5.1 Thou/mm3 (1.8-7.7); Neutrophils % (Auto) 73 % (37-80); Nucleated Red Blood Cell # 0.00 Thou/mm3 (0.00-0.00); Nucleated Red Blood Cell % 0 /100 WBC (0); Platelet Count 168 Thou/mm3 (140-440); RDW Standard Deviation 38.5 fL (35.1-43.9); Red Blood Count 4.52 Miln/mm3 (4.50-5.90); White Blood Count 7.0 Thou/mm3 (3.8-10.6)
[2025-06-30 21:44] LABS: INR 1.0 (0.9-1.3); Prothrombin Time 10.8 Seconds (9.0-12.2)
[2025-07-01] VITALS (10 sets, daily range): BP systolic 115–140; BP diastolic 71–94; PULSE 43–91; RESP 13–98; TEMP 36.2–37.4; O2SAT 92–99; BMI 30.8
[2025-07-01 07:04] LABS: Basophils # (Auto) 0.0 Thou/mm3 (0.0-0.2); Basophils % (Auto) 0 % (0-2.5); Eosinophils # (Auto) 0.1 Thou/mm3 (0.0-0.5); Eosinophils % (Auto) 2 % (0-10); Hematocrit 40.5 % (41.0-53.0); Hemoglobin 14.1 g/dL (13.5-16.0); Immature Granulocytes Auto 0.02 Thou/mm3 (0.00-0.00); Lymphocytes # (Auto) 1.4 Thou/mm3 (1.0-4.8); Lymphocytes % (Auto) 20 % (10-50); Mean Corpuscular HGB Conc 34.8 g/dl (31.0-37.0); Mean Corpuscular Hemoglobin 31.5 pg (25.0-35.0); Mean Corpuscular Volume 90 fL (80-100); Monocytes # (Auto) 0.5 Thou/mm3 (0.0-0.8); Monocytes % (Auto) 7 % (0-12); Neutrophils # (Auto) 5.0 Thou/mm3 (1.8-7.7); Neutrophils % (Auto) 71 % (37-80); Nucleated Red Blood Cell # 0.00 Thou/mm3 (0.00-0.00); Nucleated Red Blood Cell % 0 /100 WBC (0); Platelet Count 193 Thou/mm3 (140-440); RDW Standard Deviation 38.0 fL (35.1-43.9); Red Blood Count 4.48 Miln/mm3 (4.50-5.90); White Blood Count 7.1 Thou/mm3 (3.8-10.6)
[2025-07-01 07:28] LABS: Alanine Aminotransferase 189 U/L (10-49); Albumin, Serum 3.9 gm/dL (3.5-5.0); Albumin/Globulin Ratio 1.7 (1.2-2.2); Alkaline Phosphatase 45 U/L (46-116); Anion Gap 11 (7-16); Aspartate Amino Transferase 405 U/L (0-34); BUN/Creatinine Ratio 13 Ratio (12-20); Bilirubin,Total 1.0 mg/dL (0.3-1.2); Blood Urea Nitrogen 14 mg/dL (9-23); Calcium 8.3 mg/dL (8.3-10.6); Calcium (Corrected) 8.4 mg/dL (8.5-10.1); Carbon Dioxide 26.5 mMol/L (20.0-31.0); Chloride 102 mMol/L (98-107); Creatinine (Component) 1.1 mg/dL (0.6-1.3); Estimated Creatinine Clearance 89.3 mL/min (>60); Globulin 2.3 gm/dL (2.3-3.5); Glucose 89 mg/dL (74-106); Magnesium 2.0 mg/dL (1.6-2.6); Osmolality,Calculated 277 (275-295); Phosphorous 3.3 mg/dL (2.4-5.1); Potassium 3.7 mMol/L (3.4-5.1); Sodium 139 mMol/L (136-145); Total Protein 6.2 gm/dL (5.7-8.2); eGFR > 60 See Note
[2025-07-01] MEDS: FOLIC ACID 1 MG TABLET PO ×2 (09:54→20:41)
[2025-07-01] MEDS: THIAMINE 100 MG TABLET PO ×2 (09:54→20:41)
[2025-07-01 10:28] LABS: INR 1.0 (0.9-1.3); Prothrombin Time 11.0 Seconds (9.0-12.2)
--- NOTE | 2025-07-01 15:53 | PC.SS ---
Rounding Note: Poison control recommendation for 5 day monitoring ceases tomorrow. Upon achievement of medical clearance patient will undergo a mental health evaluation.
--- NOTE | 2025-07-01 19:01 | ESPR_ITS ---
<Statement entered by Rj Doe MD - 07/01/25 19:03> I have reviewed the note and agree with the resident's assessment & plan with exceptions as below. I have personally reviewed labs, imaging, home meds/prior records, examined the patient, formulated and discussed management plan with my attending Patient was seen and examined at bedside this morning. No acute overnight events. Patient CIWA score was still around the 5-6 overnight and he was more diaphoretic in the morning therefore increased patient's Librium to 25 3 times daily. Patient started night still stable and CBC is still stable. Patient will likely be medically clear for crisis to evaluate the patient either tomorrow or the day after. No visual or auditory hallucinations and no suicidal homicidal ideation today. Rj Doe PGY2 Disclaimer: Even though this this note was dictated by speech recognition and even though it was carefully revised there may still be minor errors in latex foam worker due to voice recognition software. Documentation for date of: 07/01/25 Subjective Subjective Interval history: Was seen and examined at bedside today; CIWA had peaked overnight at 5-6, on exam CIWA was 2. Patient still has to complete protocol for rat poison ingestion as per poison control which he will complete on Monday. Afterwards, he will be seen by crisis team. Patient able to walk within the room without issue; he says his strength is almost at baseline in his legs. Exam Vital Signs Temp Pulse Resp BP Pulse Ox O2 Del Method O2 Flow Rate 97.2 F 91 16 135/92 H 92 L Nasal Cannula 2 07/01/25 16:00 07/01/25 16:00 07/01/25 16:00 07/01/25 16:00 07/01/25 16:00 07/01/25 16:00 07/01/25 16:00 Narrative Exam General: A/O x3, no acute distress, well-nourished, well-developed Eyes: PERRL, EOMI. Anicteric, vision grossly intact. Ears: No ear pain, no ear discharge, Hearing grossly intact. Nose: No nasal discharge. Mouth/Throat: Moist mucous membranes, no redness, no lesions. Neck: Neck supple, non-tender, no cervical lymphadenopathy. Lungs: Clear BESSIE to auscultation and percussion, No accessory muscle use. Cardio: Normal S1/S2, regular rhythm, no murmurs, no JVD or carotid bruits. Abdomen: Soft, mild RLQ tenderness, no palpable masses, peristalsis present, no guarding or rebound. Extremities: Symmetrical, no significant deformities, no peripheral edema , non-tender, peripheral pulses presents. Skin: No rashes, no lesions, warm to touch. Petechiae on chest. Neuro: No focal neurological deficits. 5 out of 5 strength in lower extremities. Psych: Cooperative, appropriate mood and effect. Objective Labs 07/02/25 04:34 07/02/25 04:34 Labs: Laboratory Results - last 24 hr 06/30/25 07/01/25 07/01/25 20:40 06:20 10:05 WBC 7.0 7.1 RBC 4.52 4.48 L Hgb 14.1 14.1 Hct 40.8 L 40.5 L MCV 90 90 MCH 31.2 31.5 MCHC 34.6 34.8 RDW Std Deviation 38.5 38.0 Plt Count 168 193 Neut % (Auto) 73 71 Lymph % (Auto) 19 20 [place] % (Auto) 7 7 Eos % (Auto) 1 2 Baso % (Auto) 0 0 Neut # (Auto) 5.1 5.0 Lymph # (Auto) 1.3 1.4 [place] # (Auto) 0.5 0.5 Eos # (Auto) 0.1 0.1 Baso # (Auto) 0.0 0.0 Immature Gran # (Auto) 0.02 H 0.02 H Absolute Nucleated RBC 0.00 0.00 Immature Gran % 0 0 Nucleated RBC % 0 0 PT 10.8 11.0 INR 1.0 1.0 Sodium 139 Potassium 3.7 Chloride 102 Carbon Dioxide 26.5 Anion Gap 11 BUN 14 Creatinine 1.1 D Estim Creat Clear Calc 89.3 eGFR > 60 BUN/Creatinine Ratio 13 Glucose 89 Calculated Osmolality 277 Calcium 8.3 Corrected Calcium 8.4 L Phosphorus 3.3 Magnesium 2.0 Total Bilirubin 1.0 AST 405 H ALT 189 H Alkaline Phosphatase 45 L Total Protein 6.2 Albumin 3.9 Globulin 2.3 Albumin/Globulin Ratio 1.7 ABG Interpretation ABG results: 06/28/25 16:30 VBG pH 7.47 VBG pCO2 32 L VBG pO2 83 H VBG Base Excess 0 Quality Measures Quality Measures none Assessment & Plan Assessment Current Active Medications: Generic Name Dose Route Start Last Admin Trade Name Freq PRN Reason Stop Dose Admin Acetaminophen 650 mg 06/28/25 20:04 Acetaminophen 325 Mg Tablet PO 07/28/25 20:03 Q6H PRN Fever >100.4 Acetaminophen 650 mg 06/28/25 20:04 06/29/25 13:00 Acetaminophen 325 Mg Tablet PO 07/28/25 20:03 650 mg Q6H PRN Administration PAIN SCALE 1-3 (mild Hydrocodone Bitart/Acetaminophen 1 tab 06/30/25 09:17 Hydrocodone/Apap 5/325 Tablet PO 07/05/25 09:16 Q6HR PRN PAIN SCALE 4-10(Mod-Sev Chlordiazepoxide HCl 75 mg 07/01/25 14:00 07/01/25 14:55 Chlordiazepoxide Hcl 25 Mg Capsule PO 07/06/25 13:59 75 mg Q8HR LADAN Administration Folic Acid 1 mg 06/28/25 21:00 07/01/25 09:54 Folic Acid 1 Mg Tablet PO 07/03/25 20:59 1 mg BID LADAN Administration Lorazepam 1 mg 06/30/25 09:11 07/01/25 05:32 Lorazepam 0.5 Mg Tablet PO 07/03/25 22:56 1 mg Q4HR PRN Administration ciwa 2-6 Lorazepam 2 mg 06/30/25 09:12 Lorazepam 0.5 Mg Tablet PO 07/03/25 20:18 Q4HR PRN CIWA SCORE 7-11 Lorazepam 4 mg 06/30/25 09:12 Lorazepam 0.5 Mg Tablet PO 07/03/25 22:56 Q4HR PRN ciwa 12-15 Ondansetron HCl 4 mg 06/28/25 20:04 06/30/25 21:23 Ondansetron Inj 2 Mg/Ml Inj 2 Ml IVP 07/28/25 20:03 4 mg Q6H PRN Administration NAUSEA OR VOMITING Protocol Pantoprazole Sodium 40 mg 06/28/25 21:00 07/01/25 10:06 Pantoprazole Inj 40 Mg Vial IVP 07/28/25 20:59 40 mg BID LADAN Administration Thiamine HCl 100 mg 06/28/25 21:00 07/01/25 09:54 Thiamine 100 Mg Tablet PO 07/03/25 20:59 100 mg BID LADAN Administration Plan Patient is a 44-year-old male with PMH of alcohol use disorder presented to the ED with complaints of abdominal pain, vomiting following rat poison ingestion. #Suicide attempt via rat poison and alcohol combination #Alcohol use disorder #Hyperammonemia #Alcohol withdrawal Patient admitted to suicide attempt on Monday via rat poison combined with 1 L of vodka. Patient also endorses previous alcohol use disorder including as of last week ingestion up to 1 bottle of tequila a day. INR on admission 1.0. Patient stated that he vomited specks of blood after ingestion; patient ammonia was 57 on admission. INR 1.0 today Plan: GI consulted, EGD showed gastritis with no Lynn-Cavazos tear, octreotide stopped CIWA protocol started- CIWA today was 2 Librium 75 every 8 hours secondary to likely alcohol withdrawal Crisis team activated will see him once medically stable Patient on thiamine 100 and folic acid 1 Protonix 40 twice daily Poison control recommendations received thank you very much?monitor PT PTT and INR every 12 hours for 5 days after ingestion (last check Monday?) #TOMAS Creatinine 1.9 on admission; today 1.1 Plan: Likely due to rat poison and alcohol ingestion Continue to monitor over the following days #?BABAK Patient was desatting to 70-80s while sleeping, and required 2L NC to maintain oxygenation while asleep Ddx: potential BABAK? Plan: CPAP while sleeping outpatient referral for sleep study Disposition: med-tele DVT prophylaxis: SCD GI prophylaxis: Protonix 40 twice daily Diet: clear liquid Lines: Peripheral IV CODE STATUS: Full code This case was discussed with my attending physician, Dr. Hilario, and senior resident, Dr. Lainez. David Kelsey MD-PhD, PGY1 Attending Provider Attestation/Addendum I have seen and examined the patient. I was physically present for the iyer portions of the services provided including history, physical exam, diagnosis, treatment plans and orders. I agree with assessment and plan of care as documented by residents. Even though this this note was carefully revised there may still be minor errors in latex foam worker due to voice recognition software. Barron Hilario MD
[2025-07-01] MEDS: HYDROcodone/APAP 5/325 TABLET 1 TAB PO (20:41)
--- NOTE | 2025-07-01 20:59 | PD.IMPROG ---
Documentation for date of: 07/01/25 Subjective Subjective Interval history: Hemoglobin hematocrit relatively stable Upper endoscopy showed distal esophageal ulcers Exam Vital Signs Temp Pulse Resp BP Pulse Ox O2 Del Method O2 Flow Rate 97.9 F 60 13 140/94 H 93 L Room Air 2 07/01/25 20:00 07/01/25 20:00 07/01/25 20:00 07/01/25 20:00 07/01/25 20:00 07/01/25 20:00 07/01/25 16:00 Objective Labs 07/01/25 06:20 07/01/25 06:20 Labs: Laboratory Results - last 24 hr 06/30/25 07/01/25 07/01/25 20:40 06:20 10:05 WBC 7.0 7.1 RBC 4.52 4.48 L Hgb 14.1 14.1 Hct 40.8 L 40.5 L MCV 90 90 MCH 31.2 31.5 MCHC 34.6 34.8 RDW Std Deviation 38.5 38.0 Plt Count 168 193 Neut % (Auto) 73 71 Lymph % (Auto) 19 20 [place] % (Auto) 7 7 Eos % (Auto) 1 2 Baso % (Auto) 0 0 Neut # (Auto) 5.1 5.0 Lymph # (Auto) 1.3 1.4 [place] # (Auto) 0.5 0.5 Eos # (Auto) 0.1 0.1 Baso # (Auto) 0.0 0.0 Immature Gran # (Auto) 0.02 H 0.02 H Absolute Nucleated RBC 0.00 0.00 Immature Gran % 0 0 Nucleated RBC % 0 0 PT 10.8 11.0 INR 1.0 1.0 Sodium 139 Potassium 3.7 Chloride 102 Carbon Dioxide 26.5 Anion Gap 11 BUN 14 Creatinine 1.1 D Estim Creat Clear Calc 89.3 eGFR > 60 BUN/Creatinine Ratio 13 Glucose 89 Calculated Osmolality 277 Calcium 8.3 Corrected Calcium 8.4 L Phosphorus 3.3 Magnesium 2.0 Total Bilirubin 1.0 AST 405 H ALT 189 H Alkaline Phosphatase 45 L Total Protein 6.2 Albumin 3.9 Globulin 2.3 Albumin/Globulin Ratio 1.7 Impressions Impression: Distal esophageal ulcers Continue Protonix ABG Interpretation ABG results: 06/28/25 16:30 VBG pH 7.47 VBG pCO2 32 L VBG pO2 83 H VBG Base Excess 0 Assessment & Plan A&P Narrative # Multiple episodes of hematemesis most likely Lynn-Cavazos tear although underlying portal hypertension due to chronic abuse of alcohol cannot be fully ruled out # History of chronic anxiety and depression # Suicidal ideation with ingestion of rat poison Plan N.p.o. consent obtained for fiberoptic esophagogastroduodenoscopy with possible therapeutic intervention possible biopsy under intravenous moderate sedation Thank you very much for the opportunity to participate in the care of this patient Time Spent With Patient Time: Total time spent is greater than 50% in coordination of care (as documented) at patient's floor/unit and/or counseling patient:
[2025-07-01 21:34] LABS: INR 1.1 (0.9-1.3); Prothrombin Time 11.2 Seconds (9.0-12.2)
[2025-07-02] VITALS (10 sets, daily range): BP systolic 100–132; BP diastolic 67–92; PULSE 63–99; RESP 13–96; TEMP 36.4–37.2; O2SAT 93–96; BMI 29.8; BMI 29.7
[2025-07-02 05:48] LABS: Basophils # (Auto) 0.0 Thou/mm3 (0.0-0.2); Basophils % (Auto) 1 % (0-2.5); Eosinophils # (Auto) 0.3 Thou/mm3 (0.0-0.5); Eosinophils % (Auto) 5 % (0-10); Hematocrit 42.6 % (41.0-53.0); Hemoglobin 14.7 g/dL (13.5-16.0); Immature Granulocytes Auto 0.02 Thou/mm3 (0.00-0.00); Lymphocytes # (Auto) 1.8 Thou/mm3 (1.0-4.8); Lymphocytes % (Auto) 28 % (10-50); Mean Corpuscular HGB Conc 34.5 g/dl (31.0-37.0); Mean Corpuscular Hemoglobin 31.3 pg (25.0-35.0); Mean Corpuscular Volume 91 fL (80-100); Monocytes # (Auto) 0.4 Thou/mm3 (0.0-0.8); Monocytes % (Auto) 7 % (0-12); Neutrophils # (Auto) 3.7 Thou/mm3 (1.8-7.7); Neutrophils % (Auto) 60 % (37-80); Nucleated Red Blood Cell # 0.00 Thou/mm3 (0.00-0.00); Nucleated Red Blood Cell % 0 /100 WBC (0); Platelet Count 208 Thou/mm3 (140-440); RDW Standard Deviation 38.6 fL (35.1-43.9); Red Blood Count 4.70 Miln/mm3 (4.50-5.90); White Blood Count 6.2 Thou/mm3 (3.8-10.6)
[2025-07-02] MEDS: THIAMINE 100 MG TABLET PO ×2 (09:07→20:04)
[2025-07-02] MEDS: FOLIC ACID 1 MG TABLET PO ×2 (09:07→20:04)
[2025-07-02 09:20] LABS: Alanine Aminotransferase 171 U/L (10-49); Albumin, Serum 4.0 gm/dL (3.5-5.0); Albumin/Globulin Ratio 2.0 (1.2-2.2); Alkaline Phosphatase 49 U/L (46-116); Anion Gap 10 (7-16); Aspartate Amino Transferase 240 U/L (0-34); BUN/Creatinine Ratio 14 Ratio (12-20); Bilirubin,Total 0.9 mg/dL (0.3-1.2); Blood Urea Nitrogen 13 mg/dL (9-23); Calcium 8.3 mg/dL (8.3-10.6); Calcium (Corrected) 8.3 mg/dL (8.5-10.1); Carbon Dioxide 28.1 mMol/L (20.0-31.0); Chloride 102 mMol/L (98-107); Creatinine (Component) 0.9 mg/dL (0.6-1.3); Estimated Creatinine Clearance 107.5 mL/min (>60); Globulin 2.0 gm/dL (2.3-3.5); Glucose 83 mg/dL (74-106); Osmolality,Calculated 278 (275-295); Potassium 3.9 mMol/L (3.4-5.1); Sodium 140 mMol/L (136-145); Total Protein 6.0 gm/dL (5.7-8.2); eGFR > 60 See Note
[2025-07-02 09:27] LABS: INR 1.1 (0.9-1.3); Prothrombin Time 11.3 Seconds (9.0-12.2)
--- NOTE | 2025-07-02 12:13 | PC.CC ---
[id number] received a call from CHYNA Mauro stating per Dr. Hilario, pt is medically cleared, but after talking to the residents and Dr. Hilario, he stated he would rather wait until he speaks one more time to Poison Control to fully medically clear the pt. Dr. Hilario will call ASW once pt is truly medically cleared.
--- NOTE | 2025-07-02 12:13 | PC.SS ---
Addendum entered by Lisa Mauro 07/02/25 15:02: METHODS STUDY ANALYST and SS met with patient who is pending medical clearance for mental health evaluation.? Patient is Kazakh speaking.? life educator present to assist in discussion. METHODS STUDY ANALYST and SS introduced self and role. Patient is on day 5 of being monitored per recommendations by poison control. Attending physician will notify us if patient is medically cleared later this afternoon. ?METHODS STUDY ANALYST inquired if patient had any current thoughts of harming himself and patient responded he did not possess current intent/plan of SI/HI. Patient?s appetite is intact but patient states he has not been sleeping well due to disturbances (vital checks, 1:1 staff, medical team interactions). Patient acknowledged basis of admission, alcohol and rodent poison consumption. Patient verbalized his support system consists of his three adults sons. Patient has been ambulating and states he worked with PT. Patient is requesting a walker for home. Addendum entered by Lisa Mauro 07/02/25 12:17: Per attending, poison control 5 day monitoring course to be completed today. Original Note: METHODS STUDY ANALYST and CHYNA spoke to the attending physician, Dr. Hilario, who stated that patient is medically cleared from his standpoint and we can have crisis evaluate now. SS updated ASW in ER of the request.
--- NOTE | 2025-07-02 13:37 | PD.RESPRO ---
Documentation for date of: 07/02/25 Subjective Subjective Interval history: Patient was seen and examined at bedside this morning. No acute events. Patient CIWA score was 10 yesterday night and has been in 3-4 since. Patient states he does not have any suicidal or homicidal ideation at this time and has not have any auditory or visual hallucinations. Patient's CBC and INR have been stable since admission. Contacted poison control who stated that the patient at this time did not require any more monitoring if he was not any symptoms and that we could just repeat 1 more PT and INR tomorrow morning and have his primary care physician order 1 more set of PT/INR in the outpatient setting when discharged. Otherwise decrease Librium 75 mg 3 times daily to 50 mg twice daily and will likely titrate down to daily tomorrow possible discharge in 24 to 48 hours. Patient will likely be medically cleared for crisis evaluation tomorrow morning. Exam Vital Signs Temp Pulse Resp BP Pulse Ox O2 Del Method O2 Flow Rate 98.9 F 65 15 100/67 96 Room Air 2 07/02/25 12:00 07/02/25 12:00 07/02/25 12:00 07/02/25 12:00 07/02/25 12:00 07/02/25 12:00 07/01/25 22:41 Narrative Exam General: A/O x3, no acute distress, well-nourished, well-developed Eyes: PERRL, EOMI. Anicteric, vision grossly intact. Ears: No ear pain, no ear discharge, Hearing grossly intact. Nose: No nasal discharge. Mouth/Throat: Moist mucous membranes, no redness, no lesions. Neck: Neck supple, non-tender, no cervical lymphadenopathy. Lungs: Clear BESSIE to auscultation and percussion, No accessory muscle use. Cardio: Normal S1/S2, regular rhythm, no murmurs, no JVD Abdomen: Soft, none tender, no palpable masses, peristalsis present, no guarding or rebound. Extremities: Symmetrical, no significant deformities, no peripheral edema , non-tender, peripheral pulses presents. Skin: No rashes, no lesions, warm to touch. Neuro: No focal neurological deficits. 5 out of 5 strength in lower extremities. Psych: Cooperative, appropriate mood and effect. Objective Labs 07/02/25 04:34 07/02/25 04:34 Labs: Laboratory Results - last 24 hr 07/01/25 07/02/25 21:05 04:34 WBC 6.2 RBC 4.70 Hgb 14.7 Hct 42.6 MCV 91 MCH 31.3 MCHC 34.5 RDW Std Deviation 38.6 Plt Count 208 Neut % (Auto) 60 Lymph % (Auto) 28 [place] % (Auto) 7 Eos % (Auto) 5 Baso % (Auto) 1 Neut # (Auto) 3.7 Lymph # (Auto) 1.8 [place] # (Auto) 0.4 Eos # (Auto) 0.3 Baso # (Auto) 0.0 Immature Gran # (Auto) 0.02 H Absolute Nucleated RBC 0.00 Immature Gran % 0 Nucleated RBC % 0 PT 11.2 11.3 INR 1.1 1.1 Sodium 140 Potassium 3.9 Chloride 102 Carbon Dioxide 28.1 Anion Gap 10 BUN 13 Creatinine 0.9 Estim Creat Clear Calc 107.5 eGFR > 60 BUN/Creatinine Ratio 14 Glucose 83 Calculated Osmolality 278 Calcium 8.3 Corrected Calcium 8.3 L Total Bilirubin 0.9 AST 240 H ALT 171 H Alkaline Phosphatase 49 Total Protein 6.0 Albumin 4.0 Globulin 2.0 L Albumin/Globulin Ratio 2.0 ABG Interpretation ABG results: 06/28/25 16:30 VBG pH 7.47 VBG pCO2 32 L VBG pO2 83 H VBG Base Excess 0 Quality Measures Quality Measures none Assessment & Plan Assessment Current Active Medications: Generic Name Dose Route Start Last Admin Trade Name Vee PRN Reason Stop Dose Admin Acetaminophen 650 mg 06/28/25 20:04 Acetaminophen 325 Mg Tablet PO 07/28/25 20:03 Q6H PRN Fever >100.4 Acetaminophen 650 mg 06/28/25 20:04 06/29/25 13:00 Acetaminophen 325 Mg Tablet PO 07/28/25 20:03 650 mg Q6H PRN Administration PAIN SCALE 1-3 (mild Hydrocodone Bitart/Acetaminophen 1 tab 06/30/25 09:17 07/01/25 20:41 Hydrocodone/Apap 5/325 Tablet PO 07/05/25 09:16 1 tab Q6HR PRN Administration PAIN SCALE 4-10(Mod-Sev Chlordiazepoxide HCl 50 mg 07/02/25 21:00 Chlordiazepoxide Hcl 25 Mg Capsule PO 07/07/25 20:59 BID LADAN Folic Acid 1 mg 06/28/25 21:00 07/02/25 09:07 Folic Acid 1 Mg Tablet PO 07/03/25 20:59 1 mg BID LADAN Administration Lorazepam 1 mg 06/30/25 09:11 07/02/25 05:05 Lorazepam 0.5 Mg Tablet PO 07/03/25 22:56 1 mg Q4HR PRN Administration ciwa 2-6 Lorazepam 2 mg 06/30/25 09:12 07/01/25 20:41 Lorazepam 0.5 Mg Tablet PO 07/03/25 20:18 2 mg Q4HR PRN Administration CIWA SCORE 7-11 Lorazepam 4 mg 06/30/25 09:12 Lorazepam 0.5 Mg Tablet PO 07/03/25 22:56 Q4HR PRN ciwa 12-15 Ondansetron HCl 4 mg 06/28/25 20:04 06/30/25 21:23 Ondansetron Inj 2 Mg/Ml Inj 2 Ml IVP 07/28/25 20:03 4 mg Q6H PRN Administration NAUSEA OR VOMITING Protocol Pantoprazole Sodium 40 mg 06/28/25 21:00 07/02/25 09:07 Pantoprazole Inj 40 Mg Vial IVP 07/28/25 20:59 40 mg BID LADAN Administration Thiamine HCl 100 mg 06/28/25 21:00 07/02/25 09:07 Thiamine 100 Mg Tablet PO 07/03/25 20:59 100 mg BID LADAN Administration Plan Patient is a 44-year-old male with PMH of alcohol use disorder presented to the ED with complaints of abdominal pain, vomiting following rat poison ingestion. #Suicide attempt via rat poison and alcohol combination #Alcohol use disorder #Hyperammonemia #Alcohol withdrawal #Gastritis Patient admitted to suicide attempt on Monday via rat poison combined with 1 L of vodka. Patient also endorses previous alcohol use disorder including as of last week ingestion up to 1 bottle of tequila a day. INR on admission 1.0. Patient stated that he vomited specks of blood after ingestion; patient ammonia was 57 on admission. INR 1.0 today Plan: GI consulted, EGD showed gastritis with no Lynn-Cavazos tear, octreotide stopped CIWA protocol started- CIWA today was 2 Librium 50 BID Crisis team activated will see him once medically stable Patient on thiamine 100 and folic acid 1 Protonix 40 twice daily Poison controlled cleared from their end. #TOMAS, resolved Creatinine 1.9 on admission; today 0.9 Plan: Renally dose meds Avoid nephrotoxins Continue to monitor over the following days #BABAK Patient was desatting to 70-80s while sleeping, and required 2L NC to maintain oxygenation while asleep Ddx: potential BABAK? Plan: CPAP while sleeping outpatient referral for sleep study Disposition: med-tele DVT prophylaxis: SCD GI prophylaxis: Protonix 40 twice daily Diet: clear liquid Lines: Peripheral IV CODE STATUS: Full code Case disclosed with Attending Dr. Sulaiman Doe PGY2 Disclaimer: Even though this this note was dictated by speech recognition and even though it was carefully revised there may still be minor errors in management analyst due to voice recognition software. Attending Provider Attestation/Addendum I have seen and examined the patient. I was physically present for the iyer portions of the services provided including history, physical exam, diagnosis, treatment plans and orders. I agree with assessment and plan of care as documented by residents. Patient seen and examined this morning at bedside. Appears comfortable and denies any new complaints. No acute overnight events, vitals are stable. Lab results are stable as well, liver function is improving. PT/INR remained within normal limits. Discussed with poison control, recommended 1 more PT/INR tomorrow morning. Patient's CIWA score overnight was 10 but has been stable throughout the day. We will decrease his Librium to 50 mg twice daily. Patient denies any suicidal ideation or homicidal ideation at this time. We will continue to taper his Librium, monitor PT/INR tomorrow morning. If remains stable, patient will be medically clear tomorrow. Even though this this note was carefully revised there may still be minor errors in management analyst due to voice recognition software. Barron Hilario MD
--- NOTE | 2025-07-02 21:34 | ESPR_ITS ---
Documentation for date of: 07/02/25 Subjective Subjective Interval history: Patient evaluated Hemoglobin hematocrit 14.7 and 42.1 Exam Vital Signs Temp Pulse Resp BP Pulse Ox O2 Del Method O2 Flow Rate 97.5 F 85 20 122/86 H 95 Room Air 2 07/02/25 20:00 07/02/25 20:00 07/02/25 20:00 07/02/25 20:00 07/02/25 20:00 07/02/25 20:00 07/01/25 22:41 Objective Labs 07/02/25 04:34 07/02/25 04:34 Labs: Laboratory Results - last 24 hr 07/01/25 07/02/25 21:05 04:34 WBC 6.2 RBC 4.70 Hgb 14.7 Hct 42.6 MCV 91 MCH 31.3 MCHC 34.5 RDW Std Deviation 38.6 Plt Count 208 Neut % (Auto) 60 Lymph % (Auto) 28 [place] % (Auto) 7 Eos % (Auto) 5 Baso % (Auto) 1 Neut # (Auto) 3.7 Lymph # (Auto) 1.8 [place] # (Auto) 0.4 Eos # (Auto) 0.3 Baso # (Auto) 0.0 Immature Gran # (Auto) 0.02 H Absolute Nucleated RBC 0.00 Immature Gran % 0 Nucleated RBC % 0 PT 11.2 11.3 INR 1.1 1.1 Sodium 140 Potassium 3.9 Chloride 102 Carbon Dioxide 28.1 Anion Gap 10 BUN 13 Creatinine 0.9 Estim Creat Clear Calc 107.5 eGFR > 60 BUN/Creatinine Ratio 14 Glucose 83 Calculated Osmolality 278 Calcium 8.3 Corrected Calcium 8.3 L Total Bilirubin 0.9 AST 240 H ALT 171 H Alkaline Phosphatase 49 Total Protein 6.0 Albumin 4.0 Globulin 2.0 L Albumin/Globulin Ratio 2.0 Impressions Impression: Distal esophageal ulcers Relatively stable hemoglobin hematocrit Continue current management ABG Interpretation ABG results: 06/28/25 16:30 VBG pH 7.47 VBG pCO2 32 L VBG pO2 83 H VBG Base Excess 0 Assessment & Plan A&P Narrative # Multiple episodes of hematemesis most likely Lynn-Cavazos tear although underlying portal hypertension due to chronic abuse of alcohol cannot be fully ruled out # History of chronic anxiety and depression # Suicidal ideation with ingestion of rat poison Plan N.p.o. consent obtained for fiberoptic esophagogastroduodenoscopy with possible therapeutic intervention possible biopsy under intravenous moderate sedation Thank you very much for the opportunity to participate in the care of this patient Time Spent With Patient Time: Total time spent is greater than 50% in coordination of care (as documented) at patient's floor/unit and/or counseling patient:
[2025-07-03] VITALS (8 sets, daily range): BP systolic 110–140; BP diastolic 68–99; PULSE 61–96; RESP 16–96; TEMP 36.2–36.8; O2SAT 92–97; BMI 30.5
[2025-07-03 06:00] LABS: Basophils # (Auto) 0.0 Thou/mm3 (0.0-0.2); Basophils % (Auto) 1 % (0-2.5); Eosinophils # (Auto) 0.3 Thou/mm3 (0.0-0.5); Eosinophils % (Auto) 5 % (0-10); Hematocrit 43.2 % (41.0-53.0); Hemoglobin 15.0 g/dL (13.5-16.0); Immature Granulocytes Auto 0.01 Thou/mm3 (0.00-0.00); Lymphocytes # (Auto) 2.0 Thou/mm3 (1.0-4.8); Lymphocytes % (Auto) 35 % (10-50); Mean Corpuscular HGB Conc 34.7 g/dl (31.0-37.0); Mean Corpuscular Hemoglobin 31.9 pg (25.0-35.0); Mean Corpuscular Volume 92 fL (80-100); Monocytes # (Auto) 0.5 Thou/mm3 (0.0-0.8); Monocytes % (Auto) 8 % (0-12); Neutrophils # (Auto) 2.9 Thou/mm3 (1.8-7.7); Neutrophils % (Auto) 51 % (37-80); Nucleated Red Blood Cell # 0.00 Thou/mm3 (0.00-0.00); Nucleated Red Blood Cell % 0 /100 WBC (0); Platelet Count 220 Thou/mm3 (140-440); RDW Standard Deviation 40.4 fL (35.1-43.9); Red Blood Count 4.70 Miln/mm3 (4.50-5.90); White Blood Count 5.6 Thou/mm3 (3.8-10.6)
[2025-07-03 06:26] LABS: Alanine Aminotransferase 159 U/L (10-49); Albumin, Serum 4.2 gm/dL (3.5-5.0); Albumin/Globulin Ratio 1.9 (1.2-2.2); Alkaline Phosphatase 46 U/L (46-116); Anion Gap 13 (7-16); Aspartate Amino Transferase 145 U/L (0-34); BUN/Creatinine Ratio 8 Ratio (12-20); Bilirubin,Total 0.6 mg/dL (0.3-1.2); Blood Urea Nitrogen 7 mg/dL (9-23); Calcium 8.5 mg/dL (8.3-10.6); Calcium (Corrected) 8.5 mg/dL (8.5-10.1); Carbon Dioxide 26.1 mMol/L (20.0-31.0); Chloride 104 mMol/L (98-107); Creatinine (Component) 0.9 mg/dL (0.6-1.3); Estimated Creatinine Clearance 107.5 mL/min (>60); Globulin 2.2 gm/dL (2.3-3.5); Glucose 96 mg/dL (74-106); Osmolality,Calculated 282 (275-295); Potassium 3.7 mMol/L (3.4-5.1); Sodium 143 mMol/L (136-145); Total Protein 6.4 gm/dL (5.7-8.2); eGFR > 60 See Note
[2025-07-03] MEDS: THIAMINE 100 MG TABLET PO (08:18)
[2025-07-03] MEDS: FOLIC ACID 1 MG TABLET PO (08:18)
[2025-07-03] MEDS: ACETAMINOPHEN 325 MG TABLET 650 MG PO (08:27)
--- NOTE | 2025-07-03 09:00 | PC.SS ---
rounding note: SS spoke to physician this a.m. who states patient is medically cleared and ready to be evaluated by crisis team.
[2025-07-03 09:24] LABS: INR 1.1 (0.9-1.3); Prothrombin Time 11.4 Seconds (9.0-12.2)
--- NOTE | 2025-07-03 09:35 | PC.NURSE ---
I spoke to Dr Hilario, asked if patient will be medically cleared today, stated patient is medically clear, informed [facility] for crisis evaluation.
[2025-07-03 09:58] LABS: Magnesium 1.7 mg/dL (1.6-2.6); Phosphorous 3.6 mg/dL (2.4-5.1)
--- NOTE | 2025-07-03 10:56 | PC.CC ---
[id number] contact Dr. Hilario regarding medical clearance for this pt. Per Dr. Hilario, pt is medically cleared. ASW informed that mortgage or loan underwriter will assess pt since he is medically cleared and will call him back with the outcome.
--- NOTE | 2025-07-03 11:00 | PC.SS ---
GOLF BALL MARKER notified by charge nurse that patient is medically cleared for mental health evaluation. ED coordinator updated will conduct mental health assessment.
--- NOTE | 2025-07-03 13:24 | ESPR_ITS ---
<Statement entered by Rj Doe MD - 07/03/25 14:40> I have reviewed the note and agree with the resident's assessment & plan with exceptions as below. I have personally reviewed labs, imaging, home meds/prior records, examined the patient, formulated and discussed management plan with my attending. Patient was seen and examined at bedside this morning. No acute overnight events. Patient's CIWA score has improved and was around 3 overnight gave one- time dose of Librium this morning and will discontinue. Patient was seen by crisis team and was not cleared given inconsistencies in the patient's stories about why he took the toxic agent as well as alcohol. Will wait till patient is cleared by crisis team. Otherwise from medical aspect patient is medically cleared. Rj Doe PGY2 Disclaimer: Even though this this note was dictated by speech recognition and even though it was carefully revised there may still be minor errors in grain combine driver due to voice recognition software. Documentation for date of: 07/03/25 Subjective Subjective Interval history: Patient was seen and examined at bedside; no acute events overnight. Maximum CIWA score overnight was 3. Patient states that he is feeling better, with no abdominal pain and improved strength in his legs; his leg strength is not at baseline however. Exam Vital Signs Temp Pulse Resp BP Pulse Ox O2 Del Method O2 Flow Rate 97.3 F 82 18 118/83 92 L Room Air 2 07/03/25 12:00 07/03/25 12:00 07/03/25 12:00 07/03/25 12:00 07/03/25 12:00 07/03/25 12:00 07/01/25 22:41 Narrative Exam General: A/O x3, no acute distress, well-nourished, well-developed Eyes: PERRL, EOMI. Anicteric, vision grossly intact. Ears: No ear pain, no ear discharge, Hearing grossly intact. Nose: No nasal discharge. Mouth/Throat: Moist mucous membranes, no redness, no lesions. Neck: Neck supple, non-tender, no cervical lymphadenopathy. Lungs: Clear BESSIE to auscultation and percussion, No accessory muscle use. Cardio: Normal S1/S2, regular rhythm, no murmurs, no JVD Abdomen: Soft, non tender, no palpable masses, peristalsis present, no guarding or rebound. Extremities: Symmetrical, no significant deformities, no peripheral edema , non- tender, peripheral pulses present. Skin: No rashes, no lesions, warm to touch. Neuro: No focal neurological deficits. 5 out of 5 strength in lower extremities. Psych: Cooperative, appropriate mood and effect. Objective Labs 07/03/25 05:47 07/03/25 05:47 Labs: Laboratory Results - last 24 hr 07/03/25 05:47 WBC 5.6 RBC 4.70 Hgb 15.0 Hct 43.2 MCV 92 MCH 31.9 MCHC 34.7 RDW Std Deviation 40.4 Plt Count 220 Neut % (Auto) 51 Lymph % (Auto) 35 [place] % (Auto) 8 Eos % (Auto) 5 Baso % (Auto) 1 Neut # (Auto) 2.9 Lymph # (Auto) 2.0 [place] # (Auto) 0.5 Eos # (Auto) 0.3 Baso # (Auto) 0.0 Immature Gran # (Auto) 0.01 H Absolute Nucleated RBC 0.00 Immature Gran % 0 Nucleated RBC % 0 PT 11.4 INR 1.1 Sodium 143 Potassium 3.7 Chloride 104 Carbon Dioxide 26.1 Anion Gap 13 BUN 7 L Creatinine 0.9 Estim Creat Clear Calc 107.5 eGFR > 60 BUN/Creatinine Ratio 8 L Glucose 96 Calculated Osmolality 282 Calcium 8.5 Corrected Calcium 8.5 Phosphorus 3.6 Magnesium 1.7 Total Bilirubin 0.6 AST 145 H ALT 159 H Alkaline Phosphatase 46 Total Protein 6.4 Albumin 4.2 Globulin 2.2 L Albumin/Globulin Ratio 1.9 ABG Interpretation ABG results: 06/28/25 16:30 VBG pH 7.47 VBG pCO2 32 L VBG pO2 83 H VBG Base Excess 0 Quality Measures Quality Measures none Assessment & Plan Assessment Current Active Medications: Generic Name Dose Route Start Last Admin Trade Name Freq PRN Reason Stop Dose Admin Acetaminophen 650 mg 06/28/25 20:04 Acetaminophen 325 Mg Tablet PO 07/28/25 20:03 Q6H PRN Fever >100.4 Acetaminophen 650 mg 06/28/25 20:04 07/03/25 08:27 Acetaminophen 325 Mg Tablet PO 07/28/25 20:03 650 mg Q6H PRN Administration PAIN SCALE 1-3 (mild Hydrocodone Bitart/Acetaminophen 1 tab 06/30/25 09:17 07/01/25 20:41 Hydrocodone/Apap 5/325 Tablet PO 07/05/25 09:16 1 tab Q6HR PRN Administration PAIN SCALE 4-10(Mod-Sev Chlordiazepoxide HCl 50 mg 07/03/25 09:00 07/03/25 09:03 Chlordiazepoxide Hcl 25 Mg Capsule PO 07/08/25 08:59 Not Given QDAY LADAN Folic Acid 1 mg 06/28/25 21:00 07/03/25 08:18 Folic Acid 1 Mg Tablet PO 07/03/25 20:59 1 mg BID LADAN Administration Lorazepam 1 mg 06/30/25 09:11 07/03/25 00:59 Lorazepam 0.5 Mg Tablet PO 07/03/25 22:56 1 mg Q4HR PRN Administration ciwa 2-6 Lorazepam 2 mg 06/30/25 09:12 07/01/25 20:41 Lorazepam 0.5 Mg Tablet PO 07/03/25 20:18 2 mg Q4HR PRN Administration CIWA SCORE 7-11 Lorazepam 4 mg 06/30/25 09:12 Lorazepam 0.5 Mg Tablet PO 07/03/25 22:56 Q4HR PRN ciwa 12-15 Ondansetron HCl 4 mg 06/28/25 20:04 06/30/25 21:23 Ondansetron Inj 2 Mg/Ml Inj 2 Ml IVP 07/28/25 20:03 4 mg Q6H PRN Administration NAUSEA OR VOMITING Protocol Pantoprazole Sodium 40 mg 07/03/25 21:00 Pantoprazole 40 Mg Tablet PO 08/02/25 20:59 BID [facility] Protocol Thiamine HCl 100 mg 06/28/25 21:00 07/03/25 08:18 Thiamine 100 Mg Tablet PO 07/03/25 20:59 100 mg BID [facility] Administration Plan Patient is a 44-year-old male with PMH of alcohol use disorder presented to the ED with complaints of abdominal pain, vomiting following rat poison ingestion. #Suicide attempt via rat poison and alcohol combination #Alcohol use disorder #Hyperammonemia #Alcohol withdrawal #Gastritis Patient admitted to suicide attempt on Monday via rat poison combined with 1 L of vodka. Patient also endorses previous alcohol use disorder including as of last week ingestion up to 1 bottle of tequila a day. INR on admission 1.0. Patient stated that he vomited specks of blood after ingestion; patient ammonia was 57 on admission. INR 1.0 today Plan: GI consulted, EGD showed gastritis with no Lynn-Cavazos tear, octreotide stopped CIWA protocol started- CIWA today was 1 Librium 50 x1 today Crisis team has seen him- will hold for now secondary to getting addtional history from family as he was inconsitent in describing the suicide attempt Patient on thiamine 100 and folic acid 1 Protonix 40 twice daily Poison controlled cleared from their end. #TOMAS, resolved Creatinine 1.9 on admission; today 0.9 Plan: Renally dose meds Avoid nephrotoxins Continue to monitor over the following days #BABAK Patient was desatting to 70-80s while sleeping, and required 2L NC to maintain oxygenation while asleep Ddx: potential BABAK? Plan: CPAP while sleeping outpatient referral for sleep study Disposition: med-tele DVT prophylaxis: SCD GI prophylaxis: Protonix 40 twice daily Diet: clear liquid Lines: Peripheral IV CODE STATUS: Full code This case was discussed with my attending physician, Dr. Hilario, and senior resident, Dr. Lainez. David Kelsey MD-PhD, PGY1 Attending Provider Attestation/Addendum I have seen and examined the patient. I was physically present for the iyer portions of the services provided including history, physical exam, diagnosis, treatment plans and orders. I agree with assessment and plan of care as documented by residents. Patient seen and examined at bedside this morning. Appears comfortable and denies any new complaints. Vital signs have been stable except for mild hypertension. CIWA score has been stable and less than 5, we will discontinue his Librium. PT/INR came back within normal limits this morning. Patient is medically clear for discharge but underwent crisis evaluation. Patient was found unsafe for discharge, due to risk for harm to himself and was placed on 5150 hold. Even though this this note was carefully revised there may still be minor errors in grain combine driver due to voice recognition software. Barron Hilario MD
--- NOTE | 2025-07-03 14:33 | PC.SS ---
This [employer] undergraduate internship went to patient bedside with son Jose Shaikh at bedside, patient and son Jose were given patient rights. Patient was seen on the phone refused Maori copy, son Jose did accept Vietnamese copy of rights. No questions or concerns from both patient and Jose.
--- NOTE | 2025-07-03 15:36 | PC.SS ---
INDUSTRIAL WASTE TREATMENT TECHNICIAN informed by ED coordinator that patient will be placed on 5150 hold. Placement search initiated. Responses are pending.
--- NOTE | 2025-07-03 15:55 | PC.CC ---
1556- ASW-Barbi Vuong met with patient [id number] to complete assessment. ASW introduced self, role, and reason for assessment. ASW disclosed limits of confidentiality as well. Patient appeared alert and oriented to self, place, and situation. Patient was pleasant; his mood appeared depressed; his behavior appeared disinhibited with flat affect. Patient?s thought process was linear and organized. No signs of delusions, paranoid or V/h. Pt reports he ingested rat poison due to being depressed about with his . Pt reports he had never attempted to end his life in the past, admits to MDD, AFSANEH and Alcohol use disorder. Pt reports he ingested a pinch of rat poison at around 10am on 06/28/25, felt nausous and vomitted. Pt stated he has been drinking liters of vodka and tequilla the day prior to ingesting the rat poison due to the separation. Pt reports the ingestion of rat poison was to end his life. pt reports he did not tell any one he had ingested the rat posion until his son Jose checked on him about 12 hours later, but by that time he could not walk and was not able to communicate what happeend. Pt was BIB EMS and then transfered into the ICU for attempted intential SI by poison. ASW staffed this case with ELVIS Ku and Dr. Hilario. It was decided that the safest outcome for this pt is to place the pt on a 5150 Hold for DTS and search for LPS placement. Pt is aware and was provided the Patients Rights Booklet. Assigned RN Payton is aware as well as glove former. ASW will submit for LPS placement. Transfer packet is in chart along with Hold.
--- NOTE | 2025-07-03 16:46 | PC.PT ---
PT eval only. Patient was xI with bed mobility, transfers, and ambulation with no AD. Patient is safe to continue using the bathroom xI with no staff or AD. RN made aware.
--- NOTE | 2025-07-03 17:46 | PC.CM ---
1350-WEED SCIENCE RESEARCH TECHNICIAN made face to face contact with the patient. Role and reason for the contact was explained. Kayode Shaikh is a [place] speaking 44 year old male who was admitted with the diagnosis of rat poison ingestion. CHIVO Landon was present at the time of the contact. Patient?s son, Jose was also in the room at the time of the contact. When explaining the reason for the contact, the patient attempted to minimize the event that occurred. Patient stated that Patient reports that he lives at home with his 4 children; Jose, Erica, Dwayne and Chava. Patient reports that his also lived in the home previously to this event. Patient denies having any guns in the home, he denies past suicide attempts, he reports receiving service while in long term in the past. Patient denies self-inflicted wounds at this time; rivero on the chest are from him scratching during the event he has on Monday as he reports he couldn?t breathe. WEED SCIENCE RESEARCH TECHNICIAN met with the patient to further clarity the events that occurred for this admission. Patient reports he had an argument with his . Patient reports he had been drinking alcohol on Monday and . No alcohol consumption on Monday. Patient reports that on Monday he ingested rat poisoning- patient does not indicate how much, he reports a small amount. Patient reports at the time he wanted to end his life due to the argument and events that had transpired with his . Patient reports that he did not tell anyone he had ingested the rat poison or made attempts seek medical assistance. Patient reports that it was his son, Jose who found him and brought him to the hospital because he was not able to walk. Patient at that time did not disclose to his son he had ingested rat poison. Patient only disclosed to the family when he was at the hospital. Patient was made aware of the concerns with him not disclosing to family that he had ingested rat poison in the attempt to end his life. Patient made aware of the inconsistent events he has reported. During the contact, the patient?s on did not engage or attempt to intervene for safety planning. ?
--- NOTE | 2025-07-03 17:50 | PC.CC ---
1738Glen Faye from [facility] called with accepting information: Dr. Downs, patient to arrive at 1999 to the facility, number for report [phone]. Information given to Jairo, sergeant at arms; RN to notify bedside nurse to call report at this time.
--- NOTE | 2025-07-03 18:43 | PC.NURSE ---
Attempted to give report to [facility] x 2 attempts. city distribution clerk initially stated to call back in 30 mins due to shift change. Attempted second call and was on hold for over 15 mins. Will endorse to oncoming nurse.
--- NOTE | 2025-07-03 19:24 | PC.NURSE ---
Report given to Arsalan MCCANN at .
[2025-07-03] MEDS: PANTOPRAZOLE 40 MG TABLET PO (20:07)
[2025-07-03] MEDS: HYDROcodone/APAP 5/325 TABLET 1 TAB PO (20:07)
--- NOTE | 2025-07-03 20:16 | ESPR_ITS ---
Documentation for date of: 07/03/25 Subjective Subjective Interval history: Relatively stable hemoglobin hematocrit Exam Vital Signs Temp Pulse Resp BP Pulse Ox O2 Del Method O2 Flow Rate 97.4 F 77 19 127/83 97 Room Air 2 07/03/25 20:00 07/03/25 20:00 07/03/25 20:00 07/03/25 20:00 07/03/25 20:00 07/03/25 20:00 07/01/25 22:41 Objective Labs 07/03/25 05:47 07/03/25 05:47 Labs: Laboratory Results - last 24 hr 07/03/25 05:47 WBC 5.6 RBC 4.70 Hgb 15.0 Hct 43.2 MCV 92 MCH 31.9 MCHC 34.7 RDW Std Deviation 40.4 Plt Count 220 Neut % (Auto) 51 Lymph % (Auto) 35 [place] % (Auto) 8 Eos % (Auto) 5 Baso % (Auto) 1 Neut # (Auto) 2.9 Lymph # (Auto) 2.0 [place] # (Auto) 0.5 Eos # (Auto) 0.3 Baso # (Auto) 0.0 Immature Gran # (Auto) 0.01 H Absolute Nucleated RBC 0.00 Immature Gran % 0 Nucleated RBC % 0 PT 11.4 INR 1.1 Sodium 143 Potassium 3.7 Chloride 104 Carbon Dioxide 26.1 Anion Gap 13 BUN 7 L Creatinine 0.9 Estim Creat Clear Calc 107.5 eGFR > 60 BUN/Creatinine Ratio 8 L Glucose 96 Calculated Osmolality 282 Calcium 8.5 Corrected Calcium 8.5 Phosphorus 3.6 Magnesium 1.7 Total Bilirubin 0.6 AST 145 H ALT 159 H Alkaline Phosphatase 46 Total Protein 6.4 Albumin 4.2 Globulin 2.2 L Albumin/Globulin Ratio 1.9 Impressions Impression: Distal esophageal ulcers Esophagitis Gastritis Continue current management ABG Interpretation ABG results: 06/28/25 16:30 VBG pH 7.47 VBG pCO2 32 L VBG pO2 83 H VBG Base Excess 0 Assessment & Plan A&P Narrative # Multiple episodes of hematemesis most likely Lynn-Cavazos tear although underlying portal hypertension due to chronic abuse of alcohol cannot be fully ruled out # History of chronic anxiety and depression # Suicidal ideation with ingestion of rat poison Plan N.p.o. consent obtained for fiberoptic esophagogastroduodenoscopy with possible therapeutic intervention possible biopsy under intravenous moderate sedation Thank you very much for the opportunity to participate in the care of this patient Time Spent With Patient Time: Total time spent is greater than 50% in coordination of care (as documented) at patient's floor/unit and/or counseling patient:
--- NOTE | 2025-07-04 18:30 | PD.RESDS ---
Planned Discharge Date 07/03/25 DS: Providers Provider Date of admission: 06/28/25 20:04 Primary care physician: Physician No Primary/Family Admitting Provider: Ramírez Dolan MD Attending Provider on Admission: Barron Hilario MD Consults: 06/28/25 18:31 Consult to Gastroenterology Stat Comment: Consulting Provider: Juanjo Dale 07/03/25 10:56 Referral Physical Therapy Routine Comment: Physician Instructions: Attending Provider on DC: Dr Sulaiman MD Discharging Provider: Tee Lin MD DS: Diagnosis Problem List Completed Was Problem List Reviewed/Reconciled?: Yes Hospital Course Hospital Course Hospital course: Patient is a 44-year-old male with PMH of alcohol use disorder presented to the ED with complaints of abdominal pain, vomiting following rat poison ingestion. Poison control was contacted who recommended getting every 12 hours coagulation panel and every 24 hour INR and coagulation panel up to 5 days since the date of ingestion. He was also placed on psych hold during hospital stay, due to suicide attempt, patient continued to show improved insight, crisis evaluation was done on 07/03 notified once patient was medically stable, the patient reported that he wanted to end his life due to argument with his family/, patient admitted to ingesting rat poison to end his life, and he did not tell his son until some time had passed. Patient was placed on 5150 hold for DTS, it was decided patient will be transferred to a psych facility for long-term placement. Patient was evaluated by internal medicine team, labor relations officer who did an EGD patient was found to have gastritis, no evidence of GI bleeding, patient was started on CIWA protocol treated with benzodiazepines, started on thiamine and folic acid, was on Protonix twice daily, initially patient had some acute kidney injury which was resolved with IV fluids. Patient was observed for 5 days as per question control recommendations and found to have normalization of liver enzymes and coagulation panel. The patient is stable, ambulatory, afebrile and tolerating Per oral medications at the time of discharge. The patient is placed on a psych hold, pending transfer to long-term psych facility for placement following crisis evaluation. Follow up with Primary care physician with labs within 3-5 days of discharge. If symptoms persist or worsen, return to the Emergency Department. #Suicide attempt via rat poison and alcohol combination #Alcohol use disorder #Hyperammonemia #Alcohol withdrawal #Gastritis Patient admitted to suicide attempt on Monday via rat poison combined with 1 L of vodka. Patient also endorses previous alcohol use disorder including as of last week ingestion up to 1 bottle of tequila a day. INR on admission 1.0. Patient stated that he vomited specks of blood after ingestion; patient ammonia was 57 on admission. INR 1.0 today Plan: GI consulted, EGD showed gastritis with no Lynn-Cavazos tear, octreotide stopped CIWA protocol started- CIWA today was 1 Librium 50 x1 today Crisis team has seen him- will hold for now secondary to getting addtional history from family as he was inconsitent in describing the suicide attempt Patient on thiamine 100 and folic acid 1 Protonix 40 twice daily Poison controlled cleared from their end. #TOMAS, resolved Creatinine 1.9 on admission; today 0.9 Plan: Renally dose meds Avoid nephrotoxins Continue to monitor over the following days #BABAK Patient was desatting to 70-80s while sleeping, and required 2L NC to maintain oxygenation while asleep Ddx: potential BABAK? Plan: CPAP while sleeping outpatient referral for sleep study Plan of care was discussed with my attending MD Riley Woody PGY3 Time Spent with Patient Time attestation: Total time spent providing and/or coordinating discharge services: 35 min Time spent: Greater than 30 minutes Exam Vital Signs Temp Pulse Resp BP Pulse Ox O2 Del Method O2 Flow Rate 97.4 F 77 19 127/83 97 Room Air 2 07/03/25 20:00 07/03/25 20:00 07/03/25 20:00 07/03/25 20:00 07/03/25 20:00 07/03/25 20:00 07/01/25 22:41 Narrative Exam General: A/O x3, no acute distress, well-nourished, well-developed Eyes: PERRL, EOMI. Anicteric, vision grossly intact. Ears: No ear pain, no ear discharge, Hearing grossly intact. Nose: No nasal discharge. Mouth/Throat: Moist mucous membranes, no redness, no lesions. Neck: Neck supple, non-tender, no cervical lymphadenopathy. Lungs: Clear BESSIE to auscultation and percussion, No accessory muscle use. Cardio: Normal S1/S2, regular rhythm, no murmurs, no JVD Abdomen: Soft, non tender, no palpable masses, peristalsis present, no guarding or rebound. Extremities: Symmetrical, no significant deformities, no peripheral edema , non-tender, peripheral pulses present. Skin: No rashes, no lesions, warm to touch. Neuro: No focal neurological deficits. 5 out of 5 strength in lower extremities. Psych: Cooperative, appropriate mood and effect. Discharge Plan Plan Patient Disposition: [facility] Care Plan Goals: Please follow-up with primary care physician within 2 or 3 days upon discharge Please follow up with your primary care physician to get PT/INR in 1 week Recommend follow-up with psychologist or psychiatrist outpatient Recommend abstaining from alcohol entirely. Please come back to the ER if symptoms persist or worsen Prescriptions/Referrals Prescriptions/Med Rec: No Action No Known Home Medications Referrals: No Primary/Family,Physician [Primary Care Provider] Patient/Caregiver Discharge Instructions Other Discharge Activity Instructions:: Please follow-up with primary care physician within 2 or 3 days upon discharge Please follow up with your primary care physician to get PT/INR in 1 week Recommend follow-up with psychologist or psychiatrist outpatient Recommend abstaining from alcohol entirely. Please come back to the ER if symptoms persist or worsen Education Materials: Social Drinking vs Problem Drinking, Depression and Suicide Print Language: Armenian Stand Alone Forms: [employer] Award Info., Patient Portal Info Letter Discharge Order Discharge Orders: Discharge (Routine); Ordered 07/03/25 Ordered By: Barron Hilario Quality Discharge Quality Measures VTE prophylaxis Attestestation MD Attestation I have seen and examined the patient. I was physically present for the iyer portions of the services provided including history, physical exam, diagnosis, treatment plans and orders. I agree with assessment and plan of care as documented by residents. Even though this this note was carefully revised there may still be minor errors in general merchandise manager due to voice recognition software. Barron Hilario MD
== END 2025-07-03 22:40 | DRG 817 ==
LOC: SERX 20:20 → SERHOLD 20:52 → S3NX 06-29 17:23 → S2SX 06-30 10:02
PROVIDERS: Specialist; Student in an Organized Health Care Education/Training Program; Admitting Provider Internal Medicine; Emergency Provider Emergency Medicine; Visit Provider Student in an Organized Health Care Education/Training Program
PROC: 0DB48ZX Excision of Esophagogastric Junction, Via Natural or Artificial Opening Endoscopic, Diagnostic (ICD-10-PCS; CPT 43239; principal; 2025-06-29 16:15)
DX: T60.4X2A Toxic effect of rodenticides, intentional self-harm, initial encounter (principal); E72.20 Disorder of urea cycle metabolism, unspecified; K22.6 Gastro-esophageal laceration-hemorrhage syndrome; K22.11 Ulcer of esophagus with bleeding; R45.851 Suicidal ideations; N17.9 Acute kidney failure, unspecified; Z66 Do not resuscitate; F10.90 Alcohol use, unspecified, uncomplicated; K76.6 Portal hypertension; K29.71 Gastritis, unspecified, with bleeding; G47.33 Obstructive sleep apnea (adult) (pediatric); Y90.0 Blood alcohol level of less than 20 mg/100 ml; T51.92XA Toxic effect of unspecified alcohol, intentional self-harm, initial encounter; Z87.891 Personal history of nicotine dependence
CPT/HCPCS: 36415; 70450; 71045; 72125; 76705; 80053; 80061; 80307; 80320; 80329; 81001; 82140; 82803; 83735; 84100; 84436; 84443; 85025; 85610; 85730; 86850; 86900; 86901; 93005; 93225; 96127; 96361; 96374; 96375; 96376; 97161; 99285; A4649; J1200; J1644; J2060; J2250; J2270; J2354; J2405; J2470; J3010; J3411; J3490; J7030; J7050; J7120; A9270; G0480